=== PATIENT | female | born 1950 | race Native Hawaiian/Other Pacific Islander ===

== ENCOUNTER 2016-10-18 18:43 | Emergency (ER) | payer MEDICARE, OTHER ==
[~2016-10-18] VITALS: Ht 157.5 cm; Wt 68.0 kg
[~2016-10-18 18:43] MED LIST: ASPI325T PO; HYDR12.56 PO; LISI-363 PO; LORTA5 PO; METO50; NITR.4 SL; OMEP20TA PO; ONDA4TAB7 OR; PHEN12.5 PO; PROZ20CA11 PO; SIMV20 PO; TRAM50TA PO
[2016-10-18 18:54] VITALS: BP 184/84; PULSE 114; RESP 20; TEMP 97.7; O2SAT 97
[2016-10-18 21:25] VITALS: BP 188/102; PULSE 91; RESP 18; O2SAT 98
[2016-10-18] MEDS ORDERED: SODIUM CHLOR 0.9% 1000 ML INJ 1,000 ML IV SCH (21:25)
--- NOTE | 2016-10-18 21:28 | PD ---
HPI Chief Complaint: Abdominal Pain Time Seen by Provider: 21:21 Travel History International Travel<30 days: No Contact w/Intl Traveler<30days: No Traveled to known affect area: No History of Present Illness HPI 65-year-old female here for evaluation of abdominal pain, nausea, and vomiting. Patient reports that the symptoms of an ongoing on for last 3 days. Emesis consists of food, is nonbloody. She has not had a bowel movement in the last 3 days. Pain is epigastric. She is unable to qualify the pain. Pain radiates up into her chest and she is having mild shortness of breath. She is having intermittent fevers and chills. She is also complaining of some dysuria. History of 3 sections. No other abdominal surgeries. PFSH Past Medical History Arthritis: No Asthma: No Autoimmune Disease: No Blood Disorders: No Heart Rhythm Problems: No Cancer: Yes (UTERINE) Cardiac Catheterization: Yes Cardiovascular Problems: Yes High Cholesterol: Yes Chemotherapy: Yes (1998) Chest Pain: Yes Congestive Heart Failure: No COPD: No Cerebrovascular Accident: No Coronary Artery Disease: Yes Diabetes: No Diminished Hearing: No Endocrine: No Gastrointestinal Disorders: Yes (stomach ulcers; gastroparesis) GERD: Yes Glaucoma: No Genitourinary: Yes Headaches: Yes Hepatitis: No Hiatal Hernia: No Hypertension: Yes Immune Disorder: No Kidney Stones: No Musculoskeletal: Yes Neurologic: Yes Psychiatric: No Reproductive: No Respiratory: Yes Immunizations Current: No Migraines: No Myocardial Infarction: Yes Radiation Therapy: Yes (1998) Renal Failure: No Seizures: No Sickle Cell Disease: No Sleep Apnea: No Thyroid Disease: No Ulcer: Yes (stomach) PNEUMOCCOCAL Vaccine (Year): 2 Menopausal: Yes : 5 Para: 5 Past Surgical History Abdominal Surgery: No AICD: No Appendectomy: No Arteriovenous Shunt: No Cardiac Surgery: Yes (ANGIOPLASTY IN [place] IN 2005) Cholecystectomy: No Ear Surgery: No Endocrine Surgery: No Eye Surgery: No Gynecologic Surgery: Yes (CERVIX ECTOMY) Hysterectomy: Yes Insulin Pump: No Joint Replacement: No Oral Surgery: No Pacemaker: No Thoracic Surgery: No Other Surgery: Yes Social History Alcohol Use: No Tobacco Use: No Substance Use: No Allergies-Medications (Allergen,Severity, Reaction): Coded Allergies: No Known Allergies (Verified , 06/07/12) Reported Meds & Prescriptions Reported Meds & Active Scripts Active Tramadol Hcl (Tramadol HCl) 50 Mg Tab 50 Mg PO Q4-6HPRN Phenergan (Promethazine HCl) 12.5 Mg Tab 12.5 Mg PO Q6HPRN FOR NAUSEA Ondansetron Odt (Ondansetron HCl) 4 Mg Tab 4 Mg OR Q6HPRN [place] 5/325 (Hydrocodone-Acetaminophen) 325 Mg/5 Mg Tab 1 Tab PO Q4HPRN Prozac (Fluoxetine HCl) 20 Mg Cap 20 Mg PO DAILY Zocor (Simvastatin) 20 Mg Tab 20 Mg PO HS Hctz (Hydrochlorothiazide) 12.5 Mg Cap 12.5 Mg PO DAILY Reported Lisinopril 20 Mg Tab 20 Mg PO BID Aspirin 325 Mg Tab (Aspirin) 325 Mg Tab 325 Mg PO DAILY Lopressor 50 Mg Tab (Metoprolol Tartrate) 50 Mg Tab 50 Mg .XX BID Nitroglycerin 0.4 Mg Subl 0.4 Mg SL DAILYPRN Omeprazole 20 Mg Tab 20 Mg PO DAILY Review of Systems Except as stated in HPI: all other systems reviewed are Neg Physical Exam Narrative GENERAL: Well-developed, well-nourished, comfortable, no acute distress. SKIN: Focused skin assessment warm/dry. HEAD: Atraumatic. Normocephalic. EYES: Pupils equal and round. No scleral icterus. No injection or drainage. ENT: Mucous membranes pink and dry. NECK: Trachea midline. No JVD. CARDIOVASCULAR: Regular rate and rhythm. RESPIRATORY: No accessory muscle use. Clear to auscultation. Breath sounds equal bilaterally. GASTROINTESTINAL: Abdomen soft, nondistended. Moderate epigastric tenderness without peritoneal signs. Rest of abdomen is mildly tender. Normal bowel sounds. No hernias. MUSCULOSKELETAL: No obvious deformities. No clubbing. No cyanosis. No edema. NEUROLOGICAL: Awake and alert. No obvious cranial nerve deficits. Motor grossly within normal limits. Normal speech. PSYCHIATRIC: Appropriate mood and affect; insight and judgment normal. Data Data Last Documented VS Vital Signs Date Time Temp Pulse Resp B/P Pulse Ox O2 Delivery O2 Flow Rate FiO2 10/19/16 01:36 82 18 177/81 98 Room Air 10/18/16 18:54 97.7 Orders Complete Blood Count With Diff (10/18/16 21:25) Comprehensive Metabolic Panel (10/18/16 21:25) Lipase (10/18/16 21:25) Prothrombin Time / Inr (Pt) (10/18/16 21:25) Act Partial Throm Time (Ptt) (10/18/16 21:25) Urinalysis - C+S If Indicated (10/18/16:25) Ct Abd/Pel W Iv Contrast(Rout) (10/18/16 21:25) Iv Access Insert/Monitor (10/18/16 21:25) Ecg Monitoring (10/18/16:) Oximetry (10/18/16 21:) Morphine Inj (Morphine Inj) (10/18/16 21:30) Ondansetron Inj (Zofran Inj) (10/18/16 21:30) Sodium Chlor 0.9% 1000 Ml Inj (Ns 1000 M (10/18/16 21:) Sodium Chloride 0.9% Flush (Ns Flush) (10/18/16 21:30) Electrocardiogram (10/18/16 21:25) Ckmb (Isoenzyme) Profile (10/18/16:25) Troponin I (10/18/16:) Chest, Single Ap (10/18/16 21:25) Urine Culture (10/18/16 23:00) Ceftriaxone Inj (Rocephin Inj) (10/18/16 23:45) Iohexol 350 Inj (Omnipaque 350 Inj) (10/19/16 00:30) Labs Laboratory Tests Test 10/18/16 10/18/16 22:55 23:00 White Blood Count 8.4 TH/MM3 Red Blood Count 4.92 MIL/MM3 Hemoglobin 13.8 GM/DL Hematocrit 40.0 % Mean Corpuscular Volume 81.3 FL Mean Corpuscular Hemoglobin 28.1 PG Mean Corpuscular Hemoglobin 34.6 % Concent Red Cell Distribution Width 14.7 % Platelet Count 236 TH/MM3 Mean Platelet Volume 9.2 FL Neutrophils (%) (Auto) 75.2 % Lymphocytes (%) (Auto) 15.5 % Monocytes (%) (Auto) 8.7 % Eosinophils (%) (Auto) 0.3 % Basophils (%) (Auto) 0.3 % Neutrophils # (Auto) 6.3 TH/MM3 Lymphocytes # (Auto) 1.3 TH/MM3 Monocytes # (Auto) 0.7 TH/MM3 Eosinophils # (Auto) 0.0 TH/MM3 Basophils # (Auto) 0.0 TH/MM3 CBC Comment DIFF FINAL Differential Comment Prothrombin Time 11.5 SEC Prothromb Time International 1.0 RATIO Ratio Activated Partial 32.4 SEC Thromboplast Time Sodium Level 135 MEQ/L Potassium Level 3.3 MEQ/L Chloride Level 97 MEQ/L Carbon Dioxide Level 27.3 MEQ/L Anion Gap 11 MEQ/L Blood Urea Nitrogen 18 MG/DL Creatinine 1.00 MG/DL Estimat Glomerular Filtration 55 ML/MIN Rate Random Glucose 91 MG/DL Calcium Level 9.2 MG/DL Total Bilirubin 0.7 MG/DL Aspartate Amino Transf 16 U/L (AST/SGOT) Alanine Aminotransferase 20 U/L (ALT/SGPT) Alkaline Phosphatase 112 U/L Total Creatine Kinase 18 U/L Troponin I LESS THAN 0.02 NG/ML Total Protein 8.3 GM/DL Albumin 3.2 GM/DL Lipase 178 U/L Urine Color YELLOW Urine Turbidity CLOUDY Urine pH 5.5 Urine Specific [place] 1.020 Urine Protein 30 mg/dL Urine Glucose (UA) NEG mg/dL Urine Ketones 10 mg/dL Urine Occult Blood LARGE Urine Nitrite POS Urine Bilirubin NEG Urine Urobilinogen 2.0 MG/DL Urine Leukocyte Esterase LARGE Urine RBC 15 /hpf Urine WBC 73 /hpf Urine WBC Clumps FEW Urine Squamous Epithelial 11 /hpf Cells Urine Amorphous Sediment RARE Urine Bacteria MANY /hpf Urine Mucus FEW /lpf Microscopic Urinalysis Comment CULTURE INDICATED MDM Medical Decision Making Medical Screen Exam Complete: Yes Emergency Medical Condition: Yes Interpretation(s) EKG: Sinus, rate 89, normal axis, normal intervals, nonspecific ST and T-wave abnormality, no ST segment elevations. Differential Diagnosis Gastritis, peptic ulcer disease, hepatitis, hepatobiliary disease, mesenteric ischemia. Colitis, bowel obstruction, ACS Narrative Course Initial vital signs show heart rate 114, blood pressure 184/84, pulse ox 97% on room air, oral temp of 97.7F. Heart rate improved to 82 after a liter of normal saline and pain control. CBC is unremarkable. CMP is remarkable for potassium 3.3, otherwise unremarkable. Lipase is 178. Cardiac enzymes are negative. UA is suggestive of UTI. The patient was started on Rocephin. CT abdomen pelvis: No evidence of acute abdominal or pelvic process. No masses are identified. Patient was made aware of all findings. She is resting comfortably. She will be given oral potassium. She was given a dose of Rocephin for her UTI. Although she is feeling better, she is still having some abdominal discomfort. She'll be given another dose of pain medication here. She is stable for discharge home with outpatient follow-up with her primary care physician this week. She will be discharged home with a prescription for Macrobid. She was informed on when to return to the emergency department. She verbalizes understanding and agreement with plan. Diagnosis Primary Impression: UTI (urinary tract infection) Qualified Code: N30.01 - Acute cystitis with hematuria Referrals: Primary Care Physician 3 days Additional Instructions: Follow-up with your primary care physician this week. Take antibiotic as prescribed. Return to the emergency department for worsening symptoms or any other concerns. Scripts Tramadol 50 Mg Tab50 Mg PO Q6H PRN (PAIN) #12 TAB Ref 0 Prov:Rafael Loera MD 10/19/16 Phenazopyridine (Pyridium)100 Mg [id number] Mg PO Q8H PRN (DYSURIA) 5 Days Ref 0 Prov:Rafael Loear MD 10/19/16 Nitrofurantoin Monohydrate Macrocrystals (Macrobid)100 Mg [id number] Mg PO BID 7 Days Ref 0 Prov:Rafael Loera MD 10/19/16 Disposition: 01 DISCHARGE HOME Condition: Stable Rafael Loera MD Oct 18, 2016 21:28
[2016-10-18] MEDS ORDERED: ONDANSETRON HCL 4 MG/2 ML VIAL IVP ONE (21:30)
[2016-10-18] MEDS ORDERED: SODIUM CHLORIDE 0.9% FLUSH 10 ML FLUSH IV FLUSH PRN (21:30)
[2016-10-18] MEDS ORDERED: MORPHINE SULFATE 4 MG/ML INJ IV PUSH ONE (21:30)
--- NOTE | 2016-10-18 22:36 | RADRPT ---
EXAM DATE/TIME: 10/18/2016 21:59 [facility] COMPARISON: No previous studies available for comparison. INDICATIONS : Chest pain. MEDICAL HISTORY : Hypertension. Myocardial infarction. Uterine and breast cancer. SURGICAL HISTORY : Coronary stent. Cardiac cath. ENCOUNTER: Initial ACUITY: 1 month PAIN SCORE: 6/10 LOCATION: Bilateral chest FINDINGS: A single view of the chest demonstrates the lungs to be symmetrically aerated without evidence of mas s, infiltrate or effusion. The cardiomediastinal contours are unremarkable. Osseous structures are intact. CONCLUSION: No acute disease. Jonah Stoddard MD on October 18, 2016 at 22:33 Board Certified Radiologist. This report was verified electronically.
[2016-10-18 22:55] VITALS: BP 187/100; PULSE 91; RESP 18; O2SAT 97
[2016-10-18 23:18] LABS: AUTOMATED NEUTROPHIL # 6.3 TH/MM3 (1.8-7.7); BASOPHIL % 0.3 % (0.0-2.0); EOSINOPHIL % 0.3 % (0.0-4.0); HEMO FLAGS DIFF FINAL; LYMPH % 15.5 % (9.0-44.0); LYMPHOCYTE # 1.3 TH/MM3 (1.0-4.8); MEAN CELL VOLUME 81.3 FL (80.0-100.0); MEAN CORPUSCULAR HEMOGLOBIN 28.1 PG (27.0-34.0); MEAN CORPUSCULAR HGB CONC 34.6 % (32.0-36.0); MONO % 8.7 % (0.0-8.0); NEUT % 75.2 % (16.0-70.0); PLATELET COUNT 236 TH/MM3 (150-450); RED BLOOD COUNT 4.92 MIL/MM3 (4.00-5.30); RED CELL DISTRIBUTION WIDTH 14.7 % (11.6-17.2); WHITE BLOOD COUNT 8.4 TH/MM3 (4.0-11.0)
[2016-10-18 23:29] LABS: BACTERIA, URINE MANY /hpf; BLOOD, URINE LARGE (NEG); COMMENT (UR) CULTURE INDICATED; CULTURE IF INDICATED CULTURE INDICATED; GLUCOSE,URINE NEG (NEG); KETONE, URINE 10 mg/dL (NEG); MUCUS URINE FEW /lpf (OCC); PH, URINE 5.5 (5.0-8.5); SQUAMOUS EPITHELIAL CELL URINE 11 /hpf (0-5); URINE COLOR YELLOW (YELLW/STRAW)
[2016-10-18 23:30] LABS: NITRITE,URINE POS (NEG)
[2016-10-18 23:33] LABS: APTT (PATIENT) 32.4 SEC (24.3-30.1); PROTHROMBIN TIME - PATIENT 11.5 SEC (9.8-11.6)
[2016-10-18] MEDS ORDERED: cefTRIAXone INJ 1,000 MG in SODIUM CHLORIDE 0.9% INJ 100 ML IV ONE (23:45)
[2016-10-18 23:48] LABS: ANION GAP 11 MEQ/L (5-15); AST (GOT) 16 U/L (15-37); BICARBONATE 27.3 MEQ/L (21.0-32.0); BLOOD UREA NITROGEN 18 MG/DL (7-18); CHLORIDE 97 MEQ/L (98-107); GLOMERULAR FILTRATION RATE 55 ML/MIN (>89); POTASSIUM 3.3 MEQ/L (3.5-5.1); SODIUM (NA) 135 MEQ/L (136-145)
[2016-10-18 23:53] LABS: ALKALINE PHOSPHATASE 112 U/L (45-117); ALT (GPT) 20 U/L (10-53); TOTAL BILIRUBIN ADULT 0.7 MG/DL (0.2-1.0)
[2016-10-18 23:55] LABS: CREATINE KINASE 18 U/L (26-192)
[2016-10-19 00:10] VITALS: BP 164/87; PULSE 82; RESP 18; O2SAT 95
[2016-10-19] MEDS ORDERED: IOHEXOL 350 MG/ML 10 ML VIAL (for RAD DIAG) IV ONE (00:30)
--- NOTE | 2016-10-19 01:19 | RADRPT ---
EXAM DATE/TIME: 10/19/2016 00:23 [facility] COMPARISON: No previous studies available for comparison. INDICATIONS : Abdominal pain, nausea, and vomiting X 3 days. IV CONTRAST: 96 cc Omnipaque 350 (iohexol) IV ORAL CONTRAST: No oral contrast ingested. RADIATION DOSE: 5.37 CTDIvol (mGy) MEDICAL HISTORY : Gastroparesis. utering cancer SURGICAL HISTORY : section. cervix removed ENCOUNTER: Initial ACUITY: 3 days PAIN SCALE: 7/10 LOCATION: abdomen TECHNIQUE: Volumetric scanning of the abdomen and pelvis was performed. Using automated exposure control and ad justment of the mA and/or kV according to patient size, radiation dose was kept as low as reasonably achievable to obtain optimal diagnostic quality images. FINDINGS: There is subsegmental atelectasis in the both bases. The liver and spleen are free of focal defects. The gallbladder and pancreas demonstrate no abnormality. The adrenal glands are normal. The kidneys demonstrate no evidence of solid renal mass or hydronephrosis. No free fluid or abdominal masses are identified. No para-aortic adenopathy is seen. Examination of the right lower quadrant demonstrates n o abnormality. The appendix is identified and appears normal. Examination of the pelvis demonstrates no evidence of free fluid or pelvic mass. No abnormally enlarg ed inguinal or retroperitoneal lymph nodes are present. The bladder is unremarkable. There is evidenc e of previous node dissection. CONCLUSION: 1. No evidence of acute abdominal or pelvic process. No masses are identified. Lawrence Tipton MD on October 19, 2016 at 1:15 Board Certified Radiologist. This report was verified electronically.
[2016-10-19 01:36] VITALS: BP 177/81; PULSE 82; RESP 18; O2SAT 98
[2016-10-19] MEDS ORDERED: MORPHINE SULFATE 4 MG/ML INJ IV PUSH ONE (01:45)
[2016-10-19] MEDS ORDERED: PHEN0.4T PO (01:49)
[2016-10-19] MEDS ORDERED: TRAM50TA PO ×2 (01:49→01:53)
[2016-10-19] MEDS ORDERED: MACR100C2 PO (01:49)
[2016-10-19] MEDS ORDERED: SERT-132 PO (01:53)
[2016-10-19] MEDS ORDERED: MELO-1 PO (01:53)
[2016-10-19] MEDS ORDERED: METO50TA PO (01:53)
[2016-10-19] MEDS ORDERED: CLON0.1T PO (01:53)
[2016-10-19] MEDS ORDERED: PHENAZOPYRIDINE HCL 100 MG TAB PO ONE (02:00)
--- NOTE | 2016-10-19 13:49 | EKG ---
Date Performed: 10/18/2016 Time Performed: 23:43:06 PTAGE: 65 years EKG: Sinus rhythm NONSPECIFIC ST & T-WAVE ABNORMALITY Compared to previous tracing, there are no longer criteria for p ossible septal infarct. ST-T changes are new. BORDERLINE ECG PREVIOUS TRACING : 06/25/2011 22.12 DOCTOR: Ramsey Cortez Interpretating Date/Time 10/19/2016 13:47:29
== END 2016-10-19 02:42 | disposition home or self-care (01) ==
LOC: NEPC 18:43
DX: N39.0 Urinary tract infection, site not specified (principal); R11.2 Nausea with vomiting, unspecified; R30.0 Dysuria; I10 Essential (primary) hypertension; R94.31 Abnormal electrocardiogram [ECG] [EKG]; B96.20 Unspecified Escherichia coli [E. coli] as the cause of diseases classified elsewhere
CPT/HCPCS: 71010; 74177; 80053; 81001; 82550; 83690; 84484; 85025; 85610; 85730; 87077; 87086; 87186; 93005; 96361; 96365; 96375; 96376; 99285; J0696; J2270; J2405; J7030; Q9967

== ENCOUNTER 2016-11-04 08:30 | Emergency (ER) | payer MEDICARE, OTHER ==
[~2016-11-04] VITALS: Ht 162.6 cm; Wt 72.5 kg
[~2016-11-04 08:30] MED LIST changes: -ASPI325T PO; +CLON0.1T PO; -HYDR12.56 PO; -LISI-363 PO; -LORTA5 PO; +MELO-1 PO; -METO50; +METO50TA PO; -NITR.4 SL; -OMEP20TA PO; -ONDA4TAB7 OR; -PHEN12.5 PO; -PROZ20CA11 PO; +SERT-132 PO; -SIMV20 PO
[2016-11-04 08:32] VITALS: BP 208/103; PULSE 70; RESP 20; TEMP 97.5; O2SAT 99
[2016-11-04] MEDS ORDERED: SODIUM CHLOR 0.9% 1000 ML INJ 1,000 ML IV SCH (09:06)
[2016-11-04] MEDS ORDERED: SODIUM CHLORIDE 0.9% FLUSH 10 ML FLUSH IV FLUSH PRN (09:15)
[2016-11-04] MEDS ORDERED: ONDANSETRON HCL 4 MG/2 ML VIAL IVP ONE (09:15)
[2016-11-04] MEDS ORDERED: ALUMINUM/MAGNESIUM/SIMETH 30 ML CUP PO ONE (09:15)
[2016-11-04] MEDS ORDERED: LIDOCAINE VISCOUS 2% SOLN 15 ML UDC PO ONE (09:15)
--- NOTE | 2016-11-04 09:25 | PD ---
HPI Chief Complaint: Abdominal Pain Time Seen by Provider: 08:46 Travel History International Travel<30 days: No Contact w/Intl Traveler<30days: No Traveled to known affect area: No History of Present Illness HPI 59-year-old female complains of epigastric abdominal pain for at least 2 weeks. She was seen here 2 weeks ago and diagnosed with a urinary tract infection after she arrived with essentially the same complaint. Patient is unclear with regard to answering the specific question if she went to a pharmacy and obtained her prescription for antibiotics following discharge from the prior admission. In any case she reports nausea and vomiting for the past 2 weeks. Any oral intake causes worsening of the nausea and vomiting. Location gastrointestinal. Timing intermittent. PFSH Past Medical History Arthritis: No Asthma: No Autoimmune Disease: No Blood Disorders: No Heart Rhythm Problems: No Cancer: Yes (uterine, left breast ca) Cardiac Catheterization: Yes Cardiovascular Problems: Yes High Cholesterol: Yes Chemotherapy: Yes (1998) Chest Pain: Yes Congestive Heart Failure: No COPD: No Cerebrovascular Accident: No Coronary Artery Disease: Yes Diabetes: No Diminished Hearing: No Endocrine: No Gastrointestinal Disorders: Yes (stomach ulcers; gastroparesis) GERD: Yes Glaucoma: No Genitourinary: Yes Headaches: Yes Hepatitis: No Hiatal Hernia: No Hypertension: Yes Immune Disorder: No Kidney Stones: No Musculoskeletal: Yes Neurologic: Yes Psychiatric: No Reproductive: No Respiratory: Yes Immunizations Current: No Migraines: No Myocardial Infarction: Yes Radiation Therapy: Yes (1998) Renal Failure: No Seizures: No Sickle Cell Disease: No Sleep Apnea: No Thyroid Disease: No Ulcer: Yes (stomach) PNEUMOCCOCAL Vaccine (Year): 2 Menopausal: Yes : 5 Para: 5 Past Surgical History Abdominal Surgery: No AICD: No Appendectomy: No Arteriovenous Shunt: No Cardiac Surgery: Yes (ANGIOPLASTY IN [place] IN 2005) Cholecystectomy: No Coronary Stent: Yes Ear Surgery: No Endocrine Surgery: No Eye Surgery: No Gynecologic Surgery: Yes (CERVIX ECTOMY) Hysterectomy: Yes Insulin Pump: No Joint Replacement: No Oral Surgery: No Pacemaker: No Thoracic Surgery: No Other Surgery: Yes Family History Family Myocardial Infarction: Yes (BROTHER, FATHER) Social History Alcohol Use: No Tobacco Use: No Substance Use: No Allergies-Medications (Allergen,Severity, Reaction): Coded Allergies: No Known Allergies (Verified , 11/04/16) Reported Meds & Prescriptions Reported Meds & Active Scripts Active Carafate (Sucralfate) 1 Gm Tab 1 Gm PO TID On empty stomach Pepcid (Famotidine) 20 Mg Tab 10 Mg PO BID PRN Phenergan (Promethazine HCl) 25 Mg Tab 25 Mg PO Q6H PRN Bactrim DS (Sulfamethoxazole-Trimethoprim) 800-160 Mg Tab 1 Tab PO BID Reported Clonidine (Clonidine HCl) 0.1 Mg Tab 0.1 Mg PO BID Sertraline (Sertraline HCl) 50 Mg Tab 50 Mg PO DAILY Tramadol (Tramadol HCl) 50 Mg Tab 50 Mg PO Q6H PRN Meloxicam 15 Mg Tab 15 Mg PO DAILY Metoprolol Tartrate 50 Mg Tab 50 Mg PO BID Review of Systems Except as stated in HPI: all other systems reviewed are Neg General / Constitutional: No: Fever Gastrointestinal: Positive: Other (perirectal asbscess) Physical Exam Narrative GENERAL: 66-year-old female pleasant well-nourished well-developed SKIN: Focused skin assessment warm/dry. HEAD: Atraumatic. Normocephalic. EYES: Pupils equal and round. No scleral icterus. No injection or drainage. ENT: No nasal bleeding or discharge. Mucous membranes pink and moist. NECK: Trachea midline. No JVD. CARDIOVASCULAR: Regular rate and rhythm. No murmur appreciated. RESPIRATORY: No accessory muscle use. Clear to auscultation. Breath sounds equal bilaterally. GASTROINTESTINAL: Soft. Minimal epigastric tenderness. MUSCULOSKELETAL: No obvious deformities. No clubbing. No cyanosis. No edema. NEUROLOGICAL: Awake and alert. No obvious cranial nerve deficits. Motor grossly within normal limits. Normal speech. PSYCHIATRIC: Appropriate mood and affect; insight and judgment normal. Data Data Last Documented VS Vital Signs Date Time Temp Pulse Resp B/P Pulse Ox O2 Delivery O2 Flow Rate FiO2 11/04/16 08:32 97.5 70 20 208/103 99 Room Air Hypertension noted and we will recheck Orders Complete Blood Count With Diff (11/04/16 09:06) Comprehensive Metabolic Panel (11/04/16 09:06) Lipase (11/04/16 09:06) Urinalysis - C+S If Indicated (11/04/16 09:06) Iv Access Insert/Monitor (11/04/16 09:06) Ecg Monitoring (11/04/16 09:06) Oximetry (11/04/16 09:06) Ondansetron Inj (Zofran Inj) (11/04/16 09:15) Sodium Chlor 0.9% 1000 Ml Inj (Ns 1000 M (11/04/16 09:06) Sodium Chloride 0.9% Flush (Ns Flush) (11/04/16 09:15) Al-Mag Hy-Si 40-40-4 Mg/Ml Liq (Mag-Al P (11/04/16 09:15) Lidocaine 2% Viscous (Xylocaine 2% Visco (11/04/16 09:15) Urine Culture (11/04/16 09:18) Ceftriaxone Inj (Rocephin Inj) (11/04/16 10:00) Sulfamet-Trimeth Ds 800-160 Mg (Bactrim (11/04/16 10:00) Labs Laboratory Tests Test 11/04/16 11/04/16 09:10 09:18 Sodium Level 138 MEQ/L Potassium Level 3.8 MEQ/L Chloride Level 104 MEQ/L Carbon Dioxide Level 24.2 MEQ/L Anion Gap 10 MEQ/L Blood Urea Nitrogen 20 MG/DL Creatinine 0.97 MG/DL Estimat Glomerular Filtration 57 ML/MIN Rate Random Glucose 97 MG/DL Calcium Level 8.9 MG/DL Total Bilirubin 0.4 MG/DL Aspartate Amino Transf 16 U/L (AST/SGOT) Alanine Aminotransferase 23 U/L (ALT/SGPT) Alkaline Phosphatase 83 U/L Total Protein 7.4 GM/DL Albumin 3.1 GM/DL Lipase 286 U/L White Blood Count 7.3 TH/MM3 Red Blood Count 4.73 MIL/MM3 Hemoglobin 12.9 GM/DL Hematocrit 38.9 % Mean Corpuscular Volume 82.1 FL Mean Corpuscular Hemoglobin 27.4 PG Mean Corpuscular Hemoglobin 33.3 % Concent Red Cell Distribution Width 15.1 % Platelet Count 233 TH/MM3 Mean Platelet Volume 9.2 FL Neutrophils (%) (Auto) 67.5 % Lymphocytes (%) (Auto) 25.2 % Monocytes (%) (Auto) 6.0 % Eosinophils (%) (Auto) 0.9 % Basophils (%) (Auto) 0.4 % Neutrophils # (Auto) 4.9 TH/MM3 Lymphocytes # (Auto) 1.8 TH/MM3 Monocytes # (Auto) 0.4 TH/MM3 Eosinophils # (Auto) 0.1 TH/MM3 Basophils # (Auto) 0.0 TH/MM3 CBC Comment DIFF FINAL Differential Comment Urine Color YELLOW Urine Turbidity HAZY Urine pH 6.5 Urine Specific [place] 1.011 Urine Protein NEG mg/dL Urine Glucose (UA) NEG mg/dL Urine Ketones NEG mg/dL Urine Occult Blood SMALL Urine Nitrite POS Urine Bilirubin NEG Urine Urobilinogen LESS THAN 2.0 MG/DL Urine Leukocyte Esterase MOD Urine RBC 6 /hpf Urine WBC 6 /hpf Urine WBC Clumps RARE Urine Squamous Epithelial 1 /hpf Cells Urine Transitional Epithelial <1 /hpf Cells Urine Bacteria MANY /hpf Urine Mucus FEW /lpf Microscopic Urinalysis Comment CULTURE INDICATED MDM Medical Decision Making Medical Screen Exam Complete: Yes Emergency Medical Condition: Yes Medical Record Reviewed: Yes Differential Diagnosis Constipation, Gastritis, Acute Cholecystitis, Biliary Colic, Pancreatitis, MARTINEZ , Hepatitis, Bowel Obstruction, Cystitis, Mesenteric Ischemia, AAA, Appendicitis , Renal Stone/Hydronephrosis, GERD, perforated viscous Narrative Course CBC & BMP Diagram 11/04/16 09:10 LFTs normal Lipase normal UA UTI present Very specific instructions to go to pharmacy and obtain script were discussed and pt verbalized understanding. The patient is resting comfortably and feels better, is alert and in no distress. The patients results and examination findings were discussed. The repeat examination is unremarkable and benign. The history, exam, diagnostic testing, and current condition do not suggest any significant pathology to warrant further testing, continued ED treatment, admission, or surgical evaluation at this point. The vital signs have been stable. The patient does not have uncontrollable pain, intractable vomiting, or other significant symptoms. The patient's condition is stable and appropriate for discharge. The patient will pursue further outpatient evaluation with a primary care physician or other designated or consulting physician as indicated in the discharge instructions. The patient expressed understanding and was agreeable with this plan. Diagnosis Primary Impression: UTI (urinary tract infection) Qualified Code: N30.01 - Acute cystitis with hematuria Referrals: Primary Care Physician 2 days Additional Instructions: You have a choice when it comes to health care, and we are glad that you chose [facility]. Hopefully, we have met your expectations on today's visit. You are welcome to return to [facility] at any time, as we are committed to meeting the health care needs of our community. Med/Other Pt SpecificInfo: Prescription(s) given Scripts Famotidine (Pepcid)20 Mg Tab10 Mg PO BID PRN (REFLUX) #10 TAB Ref 0 Prov:Gwyn Davis MD 11/04/16 Promethazine (Phenergan)25 Mg Tab25 Mg PO Q6H PRN (Nausea/Vomiting) #10 TAB Ref 0 Prov:Gwyn Davis MD 11/04/16 Sulfamethoxazole-Trimethoprim (Bactrim DS)800-160 Mg Tab1 Tab PO BID #14 TAB Ref 0 Prov:Gwyn Davis MD 11/04/16 Disposition: 01 DISCHARGE HOME Condition: Stable Gwyn Davis MD November 04, 2016 09:25
[2016-11-04 09:31] LABS: AUTOMATED NEUTROPHIL # 4.9 TH/MM3 (1.8-7.7); BASOPHIL % 0.4 % (0.0-2.0); EOSINOPHIL # 0.1 TH/MM3 (0-0.4); EOSINOPHIL % 0.9 % (0.0-4.0); HEMATOCRIT 38.9 % (35.0-46.0); HEMO FLAGS DIFF FINAL; LYMPH % 25.2 % (9.0-44.0); LYMPHOCYTE # 1.8 TH/MM3 (1.0-4.8); MEAN CELL VOLUME 82.1 FL (80.0-100.0); MEAN CORPUSCULAR HEMOGLOBIN 27.4 PG (27.0-34.0); MEAN CORPUSCULAR HGB CONC 33.3 % (32.0-36.0); NEUT % 67.5 % (16.0-70.0); PLATELET COUNT 233 TH/MM3 (150-450); RED BLOOD COUNT 4.73 MIL/MM3 (4.00-5.30); RED CELL DISTRIBUTION WIDTH 15.1 % (11.6-17.2); WHITE BLOOD COUNT 7.3 TH/MM3 (4.0-11.0)
[2016-11-04 09:43] LABS: BACTERIA, URINE MANY /hpf; BLOOD, URINE SMALL (NEG); COMMENT (UR) CULTURE INDICATED; CULTURE IF INDICATED CULTURE INDICATED; GLUCOSE,URINE NEG (NEG); KETONE, URINE NEG (NEG); MUCUS URINE FEW /lpf (OCC); PH, URINE 6.5 (5.0-8.5); SQUAMOUS EPITHELIAL CELL URINE 1 /hpf (0-5); TRANSITIONAL EPI CELLS, URINE <1 /hpf; URINE COLOR YELLOW (YELLW/STRAW)
[2016-11-04 09:44] LABS: NITRITE,URINE POS (NEG)
[2016-11-04 09:47] LABS: ANION GAP 10 MEQ/L (5-15); AST (GOT) 16 U/L (15-37); BICARBONATE 24.2 MEQ/L (21.0-32.0); BLOOD UREA NITROGEN 20 MG/DL (7-18); CHLORIDE 104 MEQ/L (98-107); GLOMERULAR FILTRATION RATE 57 ML/MIN (>89); POTASSIUM 3.8 MEQ/L (3.5-5.1); SODIUM (NA) 138 MEQ/L (136-145)
[2016-11-04] MEDS ORDERED: BACT800T5 PO (09:48)
[2016-11-04 09:50] LABS: ALKALINE PHOSPHATASE 83 U/L (45-117); ALT (GPT) 23 U/L (10-53); TOTAL BILIRUBIN ADULT 0.4 MG/DL (0.2-1.0)
[2016-11-04] MEDS ORDERED: SULFAMETHOXAZOLE-TRIMETHOPRIM DS 800-160 MG TAB PO ONE (10:00)
[2016-11-04] MEDS ORDERED: cefTRIAXone INJ 1,000 MG in SODIUM CHLORIDE 0.9% INJ 100 ML IV ONE (10:00)
[2016-11-04] MEDS ORDERED: PROM25TA5 PO (10:08)
[2016-11-04] MEDS ORDERED: FAMO1TAB37 PO (10:08)
== END 2016-11-04 12:16 | disposition home or self-care (01) ==
LOC: NEPE 08:30
DX: N30.01 Acute cystitis with hematuria (principal); B96.20 Unspecified Escherichia coli [E. coli] as the cause of diseases classified elsewhere; R11.2 Nausea with vomiting, unspecified; R10.13 Epigastric pain; I10 Essential (primary) hypertension; E78.00 Pure hypercholesterolemia, unspecified; I25.2 Old myocardial infarction; Z85.42 Personal history of malignant neoplasm of other parts of uterus; Z85.3 Personal history of malignant neoplasm of breast; Z86.79 Personal history of other diseases of the circulatory system; Z87.19 Personal history of other diseases of the digestive system; Z87.448 Personal history of other diseases of urinary system; Z87.39 Personal history of other diseases of the musculoskeletal system and connective tissue; Z86.69 Personal history of other diseases of the nervous system and sense organs
CPT/HCPCS: 80053; 81001; 83690; 85025; 87077; 87086; 87186; 96361; 96374; 96375; 99284; J0696; J2405; J7030

== ENCOUNTER 2016-11-06 03:48 | Emergency (ER) | payer MEDICARE, OTHER ==
[~2016-11-06] VITALS: Ht 167.6 cm; Wt 65.0 kg
[~2016-11-06 03:48] MED LIST changes: +BACT800T5 PO; +FAMO1TAB37 PO; +PROM25TA5 PO
[2016-11-06] MEDS ORDERED: SODIUM CHLOR 0.9% 1000 ML INJ 1,000 ML IV SCH (03:54)
[2016-11-06] MEDS ORDERED: SODIUM CHLORIDE 0.9% FLUSH 10 ML FLUSH IV FLUSH PRN (04:00)
[2016-11-06] MEDS ORDERED: LIDOCAINE VISCOUS 2% SOLN 15 ML UDC PO ONE (04:00)
[2016-11-06] MEDS ORDERED: ONDANSETRON HCL 4 MG/2 ML VIAL IVP ONE (04:00)
[2016-11-06] MEDS ORDERED: ALUMINUM/MAGNESIUM/SIMETH 30 ML CUP PO ONE (04:00)
[2016-11-06] MEDS ORDERED: MORPHINE SULFATE 4 MG/ML INJ IV PUSH ONE (04:00)
[2016-11-06 04:07] VITALS: BP 221/100; PULSE 59; RESP 13; TEMP 98; O2SAT 99
[2016-11-06 04:09] VITALS: RESP 13; O2SAT 99
--- NOTE | 2016-11-06 04:28 | PD ---
HPI Chief Complaint: Abdominal Pain Time Seen by Provider: 03:52 Travel History International Travel<30 days: No Contact w/Intl Traveler<30days: No Traveled to known affect area: No History of Present Illness HPI 66-year-old female here for evaluation of epigastric abdominal pain, nausea, and vomiting. Pain described as burning, has been ongoing since around 8:00 PM. The patient reports history of gastric ulcers, and is requesting that I do a surgery to help her with these ulcers. She tried taking Zantac without relief of symptoms. Pain radiates up into her chest. I evaluated the patient 2 weeks ago for the same presentation, and workup was essentially unremarkable. CT abdomen pelvis at that time showed no acute intra-abdominal pathology. She was diagnosed with a UTI. She again presented to the emergency department 2 days ago for the same presentation, and had reassuring labs, once again diagnosed with a UTI. PFSH Past Medical History Arthritis: No Asthma: No Autoimmune Disease: No Blood Disorders: No Heart Rhythm Problems: No Cancer: Yes (uterine, left breast ca) Cardiac Catheterization: Yes Cardiovascular Problems: Yes High Cholesterol: Yes Chemotherapy: Yes (1998) Chest Pain: Yes Congestive Heart Failure: No COPD: No Cerebrovascular Accident: No Coronary Artery Disease: Yes Diabetes: No Diminished Hearing: No Endocrine: No Gastrointestinal Disorders: Yes (stomach ulcers; gastroparesis) GERD: Yes Glaucoma: No Genitourinary: Yes Headaches: Yes Hepatitis: No Hiatal Hernia: No Hypertension: Yes Immune Disorder: No Kidney Stones: No Musculoskeletal: Yes Neurologic: Yes Psychiatric: No Reproductive: No Respiratory: Yes Immunizations Current: No Migraines: No Myocardial Infarction: Yes Radiation Therapy: Yes (1998) Renal Failure: No Seizures: No Sickle Cell Disease: No Sleep Apnea: No Thyroid Disease: No Ulcer: Yes (stomach) PNEUMOCCOCAL Vaccine (Year): 2 ?: Not Menopausal: Yes : 5 Para: 5 Past Surgical History Abdominal Surgery: No AICD: No Appendectomy: No Arteriovenous Shunt: No Cardiac Surgery: Yes (ANGIOPLASTY IN [place] IN 2005) Cholecystectomy: No Coronary Stent: Yes Ear Surgery: No Endocrine Surgery: No Eye Surgery: No Gynecologic Surgery: Yes (CERVIX ECTOMY) Hysterectomy: Yes Insulin Pump: No Joint Replacement: No Oral Surgery: No Pacemaker: No Thoracic Surgery: No Other Surgery: Yes Social History Alcohol Use: No Tobacco Use: No Substance Use: No Allergies-Medications (Allergen,Severity, Reaction): Coded Allergies: No Known Allergies (Verified , 11/04/16) Reported Meds & Prescriptions Reported Meds & Active Scripts Active Pepcid (Famotidine) 20 Mg Tab 10 Mg PO BID PRN Phenergan (Promethazine HCl) 25 Mg Tab 25 Mg PO Q6H PRN Bactrim DS (Sulfamethoxazole-Trimethoprim) 800-160 Mg Tab 1 Tab PO BID Reported Clonidine (Clonidine HCl) 0.1 Mg Tab 0.1 Mg PO BID Sertraline (Sertraline HCl) 50 Mg Tab 50 Mg PO DAILY Tramadol (Tramadol HCl) 50 Mg Tab 50 Mg PO Q6H PRN Meloxicam 15 Mg Tab 15 Mg PO DAILY Metoprolol Tartrate 50 Mg Tab 50 Mg PO BID Review of Systems Except as stated in HPI: all other systems reviewed are Neg Physical Exam Narrative GENERAL: Well-developed, well-nourished, mild distress secondary to abdominal pain. Tearful. SKIN: Focused skin assessment warm/dry. HEAD: Atraumatic. Normocephalic. EYES: Pupils equal and round. No scleral icterus. No injection or drainage. ENT: Mucous membranes pink and moist. NECK: Trachea midline. No JVD. CARDIOVASCULAR: Regular rate and rhythm. Distal pulses brisk and equal bilaterally. RESPIRATORY: No accessory muscle use. Clear to auscultation. Breath sounds equal bilaterally. GASTROINTESTINAL: Abdomen soft, nondistended. Moderate epigastric tenderness without peritoneal signs. Rest of abdomen is soft and nontender. Normal bowel sounds. No hernias. MUSCULOSKELETAL: No obvious deformities. No clubbing. No cyanosis. No edema. NEUROLOGICAL: Awake and alert. No obvious cranial nerve deficits. Motor grossly within normal limits. Normal speech. Data Data Last Documented VS Vital Signs Date Time Temp Pulse Resp B/P Pulse Ox O2 Delivery O2 Flow Rate FiO2 11/06/16 04:52 55 14 170/77 97 Room Air 11/06/16 04:07 98.0 Orders Complete Blood Count With Diff (11/06/16 03:54) Comprehensive Metabolic Panel (11/06/16 03:54) Lipase (11/06/16 03:54) Prothrombin Time / Inr (Pt) (11/06/16 03:54) Act Partial Throm Time (Ptt) (11/06/16 03:54) Iv Access Insert/Monitor (11/06/16 03:54) Ecg Monitoring (11/06/16 03:54) Oximetry (11/06/16 03:54) Morphine Inj (Morphine Inj) (11/06/16 04:00) Ondansetron Inj (Zofran Inj) (11/06/16 04:00) Sodium Chlor 0.9% 1000 Ml Inj (Ns 1000 M (11/06/16 03:54) Sodium Chloride 0.9% Flush (Ns Flush) (11/06/16 04:00) Electrocardiogram (11/06/16 03:54) Al-Mag Hy-Si 40-40-4 Mg/Ml Liq (Mag-Al P (11/06/16 04:00) Lidocaine 2% Viscous (Xylocaine 2% Visco (11/06/16 04:00) Ckmb (Isoenzyme) Profile (11/06/16 03:54) Troponin I (11/06/16 03:54) Urinalysis - C+S If Indicated (11/06/16 03:55) Ceftriaxone Inj (Rocephin Inj) (11/06/16 05:00) Sucralfate (Carafate) (11/06/16 05:45) Labs Laboratory Tests Test 11/06/16 11/06/16 11/06/16 04:00 04:25 04:50 Sodium Level 137 MEQ/L Potassium Level 4.3 MEQ/L Chloride Level 103 MEQ/L Carbon Dioxide Level 26.2 MEQ/L Anion Gap 8 MEQ/L Blood Urea Nitrogen 18 MG/DL Creatinine 0.95 MG/DL Estimat Glomerular Filtration 59 ML/MIN Rate Random Glucose 91 MG/DL Calcium Level 8.9 MG/DL Total Bilirubin 0.4 MG/DL Aspartate Amino Transf 26 U/L (AST/SGOT) Alanine Aminotransferase 26 U/L (ALT/SGPT) Alkaline Phosphatase 86 U/L Total Creatine Kinase 67 U/L Troponin I LESS THAN 0.02 NG/ML Total Protein 7.2 GM/DL Albumin 3.0 GM/DL Lipase 272 U/L Urine Color YELLOW Urine Turbidity HAZY Urine pH 6.5 Urine Specific [place] 1.017 Urine Protein NEG mg/dL Urine Glucose (UA) NEG mg/dL Urine Ketones NEG mg/dL Urine Occult Blood SMALL Urine Nitrite NEG Urine Bilirubin NEG Urine Urobilinogen LESS THAN 2.0 MG/DL Urine Leukocyte Esterase NEG Urine RBC 9 /hpf Urine WBC 1 /hpf Urine Squamous Epithelial 2 /hpf Cells Urine Hyaline Casts 2 /lpf Urine Mucus FEW /lpf Microscopic Urinalysis Comment CULT NOT INDICATED White Blood Count 7.4 TH/MM3 Red Blood Count 4.43 MIL/MM3 Hemoglobin 12.3 GM/DL Hematocrit 36.1 % Mean Corpuscular Volume 81.5 FL Mean Corpuscular Hemoglobin 27.8 PG Mean Corpuscular Hemoglobin 34.1 % Concent Red Cell Distribution Width 15.1 % Platelet Count 220 TH/MM3 Mean Platelet Volume 9.0 FL Neutrophils (%) (Auto) 61.7 % Lymphocytes (%) (Auto) 29.3 % Monocytes (%) (Auto) 7.1 % Eosinophils (%) (Auto) 1.3 % Basophils (%) (Auto) 0.6 % Neutrophils # (Auto) 4.6 TH/MM3 Lymphocytes # (Auto) 2.2 TH/MM3 Monocytes # (Auto) 0.5 TH/MM3 Eosinophils # (Auto) 0.1 TH/MM3 Basophils # (Auto) 0.0 TH/MM3 CBC Comment DIFF FINAL Differential Comment Prothrombin Time 10.7 SEC Prothromb Time International 1.0 RATIO Ratio Activated Partial 27.3 SEC Thromboplast Time MDM Medical Decision Making Medical Screen Exam Complete: Yes Emergency Medical Condition: Yes Medical Record Reviewed: Yes Differential Diagnosis Gastritis, peptic ulcer disease, pancreatitis, hepatobiliary disease, ACS Narrative Course Initial vital signs show blood pressure of 221/100 which improved to 170/77 after the patient received pain medication, heart rate 59, pulse ox 99% on room air, oral temp of 98F. CBC is unremarkable. CMP is unremarkable. Lipase is 272. Cardiac enzymes are negative. UA Shows small occult blood, 9 RBCs, 1 WBC, few mucus, hazy urine. UA from 2 days ago grew out gram-negative rods. From 2 weeks ago grew out Escherichia coli that was pansensitive. Patient was started on Bactrim 2 days ago. I decided to give her a dose of Rocephin IV here in the emergency department. Patient was given an liter of normal saline IV, morphine, and GI cocktail, and on reassessment she is sleeping comfortably. I do not believe her symptoms are cardiac in nature. Her EKG is not ischemic and is unchanged from prior. Her cardiac enzymes are negative. She did have some epigastric tenderness on exam. No peritoneal signs. No right upper quadrant tenderness. Negative Rico sign. I do not believe that there is an acute/surgical intra-abdominal process to warrant further imaging at this time. Patient tells me that she wants a surgery to get rid of her gastric ulcers. She was made aware of all laboratory findings. She is stable for discharge home with outpatient follow-up with her primary care physician this week. I will also give her the name of the director clinical information services automation engineering technician with whom to follow-up with. She tells me she takes Zantac daily. I will give her prescription for Carafate. She was informed on when to return to the emergency department. She verbalizes understanding and agreement with plan. Diagnosis Primary Impression: Epigastric abdominal pain Referrals: Bulmaro Peters MD 3 days [employer] Mach[employer] Primary Care Physician 3 days Additional Instructions: Follow-up with your primary care physician this week. Follow-up with director clinical information services Dr. Peters or director clinical information services of your choice this week. Return to the emergency department for worsening symptoms or any other concerns. Scripts Sucralfate (Carafate)1 Gm Tab1 Gm PO TID #90 TAB Ref 0 On empty stomach Prov:Rafael Loera MD 11/06/16 Disposition: 01 DISCHARGE HOME Condition: Stable Rafael Loera MD November 06, 2016 04:28
[2016-11-06 04:47] LABS: ALKALINE PHOSPHATASE 86 U/L (45-117); ALT (GPT) 26 U/L (10-53); ANION GAP 8 MEQ/L (5-15); AST (GOT) 26 U/L (15-37); BICARBONATE 26.2 MEQ/L (21.0-32.0); BLOOD UREA NITROGEN 18 MG/DL (7-18); CHLORIDE 103 MEQ/L (98-107); GLOMERULAR FILTRATION RATE 59 ML/MIN (>89); SODIUM (NA) 137 MEQ/L (136-145); TOTAL BILIRUBIN ADULT 0.4 MG/DL (0.2-1.0)
[2016-11-06 04:48] LABS: CREATINE KINASE 67 U/L (26-192); POTASSIUM 4.3 MEQ/L (3.5-5.1)
[2016-11-06 04:52] VITALS: BP 170/77; PULSE 55; RESP 14; O2SAT 97
[2016-11-06] MEDS ORDERED: cefTRIAXone INJ 1,000 MG in SODIUM CHLORIDE 0.9% INJ 100 ML IV ONE (05:00)
[2016-11-06 05:05] LABS: AUTOMATED NEUTROPHIL # 4.6 TH/MM3 (1.8-7.7); BASOPHIL % 0.6 % (0.0-2.0); EOSINOPHIL # 0.1 TH/MM3 (0-0.4); EOSINOPHIL % 1.3 % (0.0-4.0); HEMATOCRIT 36.1 % (35.0-46.0); HEMO FLAGS DIFF FINAL; LYMPH % 29.3 % (9.0-44.0); LYMPHOCYTE # 2.2 TH/MM3 (1.0-4.8); MEAN CELL VOLUME 81.5 FL (80.0-100.0); MEAN CORPUSCULAR HEMOGLOBIN 27.8 PG (27.0-34.0); MEAN CORPUSCULAR HGB CONC 34.1 % (32.0-36.0); MONO % 7.1 % (0.0-8.0); NEUT % 61.7 % (16.0-70.0); PLATELET COUNT 220 TH/MM3 (150-450); RED BLOOD COUNT 4.43 MIL/MM3 (4.00-5.30); RED CELL DISTRIBUTION WIDTH 15.1 % (11.6-17.2); WHITE BLOOD COUNT 7.4 TH/MM3 (4.0-11.0)
[2016-11-06 05:19] LABS: BLOOD, URINE SMALL (NEG); GLUCOSE,URINE NEG (NEG); HYALINE CAST, URINE 2 /lpf (RARE); KETONE, URINE NEG (NEG); MUCUS URINE FEW /lpf (OCC); NITRITE,URINE NEG (NEG); PH, URINE 6.5 (5.0-8.5); SQUAMOUS EPITHELIAL CELL URINE 2 /hpf (0-5); URINE COLOR YELLOW (YELLW/STRAW)
[2016-11-06 05:20] LABS: COMMENT (UR) CULT NOT INDICATED; CULTURE IF INDICATED CULT NOT INDICATED
[2016-11-06 05:23] LABS: APTT (PATIENT) 27.3 SEC (24.3-30.1); PROTHROMBIN TIME - PATIENT 10.7 SEC (9.8-11.6)
[2016-11-06] MEDS ORDERED: CARA1TAB6 PO (05:36)
[2016-11-06] MEDS ORDERED: SUCRALFATE 1 GM TAB PO ONE (05:45)
--- NOTE | 2016-11-06 08:33 | EKG ---
Date Performed: 11/06/2016 Time Performed: 04:05:23 PTAGE: 66 years EKG: SINUS BRADYCARDIA SEPTAL MYOCARDIAL INFARCTION ABNORMAL ECG PREVIOUS TRACING : 10/18/2016 23.43 DOCTOR: Ko Villanueva Interpretating Date/Time 11/06/2016 08:32:02
== END 2016-11-06 06:07 | disposition home or self-care (01) ==
LOC: NEPE 03:48
DX: R10.13 Epigastric pain (principal); R11.2 Nausea with vomiting, unspecified; R94.31 Abnormal electrocardiogram [ECG] [EKG]; I10 Essential (primary) hypertension; E78.00 Pure hypercholesterolemia, unspecified; I25.2 Old myocardial infarction; Z87.19 Personal history of other diseases of the digestive system; Z85.42 Personal history of malignant neoplasm of other parts of uterus; Z85.3 Personal history of malignant neoplasm of breast; Z86.79 Personal history of other diseases of the circulatory system; Z87.448 Personal history of other diseases of urinary system; Z87.39 Personal history of other diseases of the musculoskeletal system and connective tissue; Z86.69 Personal history of other diseases of the nervous system and sense organs; Z87.09 Personal history of other diseases of the respiratory system
CPT/HCPCS: 80053; 81001; 82550; 83690; 84484; 85025; 85610; 85730; 93005; 96374; 96375; 99284; J0696; J2270; J2405; J7030

== ENCOUNTER 2016-11-08 22:34 | Emergency (ER) | payer MEDICARE, OTHER ==
[~2016-11-08] VITALS: Ht 165.1 cm; Wt 63.0 kg
[~2016-11-08 22:34] MED LIST changes: +CARA1TAB6 PO
[2016-11-08 22:41] VITALS: BP 169/75; PULSE 53; RESP 16; TEMP 97.7; O2SAT 98
[2016-11-08] MEDS ORDERED: SODIUM CHLORIDE 0.9% FLUSH 10 ML FLUSH IVF PRN (23:00)
[2016-11-08 23:04] LABS: AUTOMATED NEUTROPHIL # 4.1 TH/MM3 (1.8-7.7); BASOPHIL % 0.5 % (0.0-2.0); EOSINOPHIL # 0.1 TH/MM3 (0-0.4); EOSINOPHIL % 1.3 % (0.0-4.0); HEMATOCRIT 34.2 % (35.0-46.0); HEMO FLAGS DIFF FINAL; LYMPHOCYTE # 2.7 TH/MM3 (1.0-4.8); MEAN CELL VOLUME 80.7 FL (80.0-100.0); MEAN CORPUSCULAR HEMOGLOBIN 28.1 PG (27.0-34.0); MEAN CORPUSCULAR HGB CONC 34.7 % (32.0-36.0); MONO % 6.5 % (0.0-8.0); NEUT % 55.7 % (16.0-70.0); PLATELET COUNT 229 TH/MM3 (150-450); RED BLOOD COUNT 4.23 MIL/MM3 (4.00-5.30); RED CELL DISTRIBUTION WIDTH 15.1 % (11.6-17.2); WHITE BLOOD COUNT 7.4 TH/MM3 (4.0-11.0)
[2016-11-08 23:27] LABS: ALKALINE PHOSPHATASE 87 U/L (45-117); TOTAL BILIRUBIN ADULT 0.4 MG/DL (0.2-1.0)
--- NOTE | 2016-11-08 23:27 | PD ---
HPI Chief Complaint: OD/ Ingestion Time Seen by Provider: 22:41 Travel History International Travel<30 days: No Contact w/Intl Traveler<30days: No Traveled to known affect area: No History of Present Illness HPI This is a 66-year-old female who presents to the emergency department with concern for overdose. The patient doesn't provide much history and has some slurred speech. I spoke to her son who says she has a long history of depression and is very concerned about her. He reports that over the past several months she's been displaying reckless behavior, has been shoplifting, and has been going from hospital to hospital "pill shopping". He says he think she is self-medicating because of her mental health problems. He says that for the past 2 months his sister has been living with her and has noticed the same behavioral problems and today her sister got worried because her mom took a handful of pills this afternoon and seems more lethargic and confused. The son is hopeful that we can involve mental health to get his mom some help. PFSH Past Medical History Arthritis: No Asthma: No Autoimmune Disease: No Blood Disorders: No Heart Rhythm Problems: No Cancer: Yes Cardiac Catheterization: Yes Cardiovascular Problems: Yes High Cholesterol: Yes Chemotherapy: Yes (1998) Chest Pain: Yes Congestive Heart Failure: No COPD: No Cerebrovascular Accident: No Coronary Artery Disease: Yes Diabetes: No Diminished Hearing: No Endocrine: No Gastrointestinal Disorders: Yes (stomach ulcers; gastroparesis) GERD: Yes Glaucoma: No Genitourinary: Yes Headaches: Yes Hepatitis: No Hiatal Hernia: No Hypertension: Yes Immune Disorder: No Kidney Stones: No Musculoskeletal: Yes Neurologic: Yes Psychiatric: No Reproductive: No Respiratory: Yes Immunizations Current: No Migraines: No Myocardial Infarction: Yes Radiation Therapy: Yes (1998) Renal Failure: No Seizures: No Sickle Cell Disease: No Sleep Apnea: No Thyroid Disease: No Ulcer: Yes PNEUMOCCOCAL Vaccine (Year): 2 Menopausal: Yes : 5 Para: 5 Past Surgical History Abdominal Surgery: No AICD: No Appendectomy: No Arteriovenous Shunt: No Cardiac Surgery: Yes (ANGIOPLASTY IN [place] IN 2005) Cholecystectomy: No Coronary Stent: Yes Ear Surgery: No Endocrine Surgery: No Eye Surgery: No Gynecologic Surgery: Yes (CERVIX ECTOMY) Hysterectomy: Yes Insulin Pump: No Joint Replacement: No Oral Surgery: No Pacemaker: No Thoracic Surgery: No Other Surgery: Yes Family History Family Myocardial Infarction: Yes (BROTHER, FATHER) Social History Alcohol Use: No Tobacco Use: No Substance Use: No Allergies-Medications (Allergen,Severity, Reaction): Coded Allergies: No Known Allergies (Verified , 11/04/16) Reported Meds & Prescriptions Reported Meds & Active Scripts Active Carafate (Sucralfate) 1 Gm Tab 1 Gm PO TID On empty stomach Pepcid (Famotidine) 20 Mg Tab 10 Mg PO BID PRN Phenergan (Promethazine HCl) 25 Mg Tab 25 Mg PO Q6H PRN Bactrim DS (Sulfamethoxazole-Trimethoprim) 800-160 Mg Tab 1 Tab PO BID Reported Clonidine (Clonidine HCl) 0.1 Mg Tab 0.1 Mg PO BID Sertraline (Sertraline HCl) 50 Mg Tab 50 Mg PO DAILY Tramadol (Tramadol HCl) 50 Mg Tab 50 Mg PO Q6H PRN Meloxicam 15 Mg Tab 15 Mg PO DAILY Metoprolol Tartrate 50 Mg Tab 50 Mg PO BID Physical Exam Narrative GENERAL:Well appearing, no acute distress SKIN: Focused skin assessment warm and dry. HEAD: Atraumatic. Normocephalic. EYES: Pupils equal and round. No injection or drainage. ENT: Moist mucous membranes NECK: Trachea midline. CARDIOVASCULAR: Regular rate and rhythm. No murmur appreciated. RESPIRATORY: Clear to auscultation. Breath sounds equal bilaterally. GASTROINTESTINAL: Abdomen soft, non-tender, nondistended. MUSCULOSKELETAL: No obvious deformities. NEUROLOGICAL: Awake and alert. No obvious cranial nerve deficits. Some slurred speech fired PSYCHIATRIC: Poor eye contact, poor insight and judgment Data Data Last Documented VS Vital Signs Date Time Temp Pulse Resp B/P Pulse Ox O2 Delivery O2 Flow Rate FiO2 11/08/16 22:41 97.7 53 16 169/75 98 Room Air Orders Complete Blood Count With Diff (11/08/16 22:49) Comprehensive Metabolic Panel (11/08/16 22:49) Urinalysis - C+S If Indicated (11/08/16 22:49) Iv Access Insert/Monitor (11/08/16 22:49) Ecg Monitoring (11/08/16 22:49) Oximetry (11/08/16 22:49) Sodium Chloride 0.9% Flush (Ns Flush) (11/08/16 23:00) Drug Screen, Random Urine (11/08/16 22:49) Alcohol (Ethanol) (11/08/16 22:49) Salicylates (Aspirin) (11/08/16 22:49) Tylenol (Acetaminophen) (11/08/16 22:49) Electrocardiogram (11/08/16 ) Ct Brain W/O Iv Contrast(Rout) (11/08/16 ) Psych Screen (11/08/16 23:23) Labs Laboratory Tests Test 11/08/16 22:57 White Blood Count 7.4 TH/MM3 Red Blood Count 4.23 MIL/MM3 Hemoglobin 11.9 GM/DL Hematocrit 34.2 % Mean Corpuscular Volume 80.7 FL Mean Corpuscular Hemoglobin 28.1 PG Mean Corpuscular Hemoglobin 34.7 % Concent Red Cell Distribution Width 15.1 % Platelet Count 229 TH/MM3 Mean Platelet Volume 9.6 FL Neutrophils (%) (Auto) 55.7 % Lymphocytes (%) (Auto) 36.0 % Monocytes (%) (Auto) 6.5 % Eosinophils (%) (Auto) 1.3 % Basophils (%) (Auto) 0.5 % Neutrophils # (Auto) 4.1 TH/MM3 Lymphocytes # (Auto) 2.7 TH/MM3 Monocytes # (Auto) 0.5 TH/MM3 Eosinophils # (Auto) 0.1 TH/MM3 Basophils # (Auto) 0.0 TH/MM3 CBC Comment DIFF FINAL Differential Comment Sodium Level 140 MEQ/L Potassium Level 3.9 MEQ/L Chloride Level 104 MEQ/L Carbon Dioxide Level 26.8 MEQ/L Anion Gap 9 MEQ/L Blood Urea Nitrogen 17 MG/DL Creatinine 1.25 MG/DL Estimat Glomerular Filtration 43 ML/MIN Rate Random Glucose 85 MG/DL Calcium Level 9.0 MG/DL Total Bilirubin 0.4 MG/DL Aspartate Amino Transf 24 U/L (AST/SGOT) Alanine Aminotransferase 26 U/L (ALT/SGPT) Alkaline Phosphatase 87 U/L Total Protein 7.6 GM/DL Albumin 3.3 GM/DL Salicylates Level LESS THAN 1.7 MG/DL Acetaminophen Level LESS THAN 2.0 MCG/ML Ethyl Alcohol Level LESS THAN 3 MG/DL MDM Medical Decision Making Medical Screen Exam Complete: Yes Emergency Medical Condition: Yes Interpretation(s) Afebrile, rate of cardiac, hypertensive No leukocytosis Mild renal insufficiency Salicylates are negative Acetaminophen is negative Alcohol negative EKG demonstrates sinus bradycardia with some ST segment flattening in the lateral leads Differential Diagnosis Depression, medication overdose, adjustment reaction Narrative Course This is a 66-year-old female who presents to the emergency department with a history of chronic abdominal pain and depression sent by her family for concern for medication abuse. Her daughter reportedly witnessed her this afternoon taking a handful of her pills. Her family doesn't think she was trying to kill her self but they think she is trying to self medicate and she's been ill shopping at different hospitals. I spoke to her son who requests that the psychiatric team call him regarding what been going on with the patient. I do think the patient requires evaluation. She does appear depressed and this does appear to be a dangerous pattern of medication misuse. Medically she is placed on a monitor and an IV was established. She was found to be slightly bradycardic. Her blood pressure was normal, labs were all reassuring and she became increasingly aware in the emergency Department. I think she is medically cleared and appropriate for psychiatric evaluation. Juliana Mae MD November 08, 2016 23:27
--- NOTE | 2016-11-08 23:36 | RADRPT ---
EXAM DATE/TIME: 11/08/2016 23:23 [facility] COMPARISON: No previous studies available for comparison. INDICATIONS : Altered mental status. RADIATION DOSE: 56.35 CTDIvol (mGy) MEDICAL HISTORY : Hypertension. SURGICAL HISTORY : None. ENCOUNTER: Initial ACUITY: 1 day PAIN SCALE: 0/10 LOCATION: cranial TECHNIQUE: Multiple contiguous axial images were obtained of the head. Using automated exposure control and adj ustment of the mA and/or kV according to patient size, radiation dose was kept as low as reasonably a chievable to obtain optimal diagnostic quality images. FINDINGS: There is marked central and cortical atrophy with dilatation of ventricular and sulcal spaces. There is no parenchymal hemorrhage, acute infarction or mass lesion identified. There are no extra-axial fluid collections appreciated. The posterior fossa is unremarkable with midline fourth ventricle. T he portion of the orbits and paranasal sinuses visualized are unremarkable. CONCLUSION: Cerebral atrophy. No acute intracranial abnormality. Chris Ricks MD on November 08, 2016 at 23:34 Board Certified Radiologist. This report was verified electronically.
[2016-11-08 23:40] LABS: ALT (GPT) 26 U/L (10-53); ANION GAP 9 MEQ/L (5-15); AST (GOT) 24 U/L (15-37); BICARBONATE 26.8 MEQ/L (21.0-32.0); BLOOD UREA NITROGEN 17 MG/DL (7-18); CHLORIDE 104 MEQ/L (98-107); GLOMERULAR FILTRATION RATE 43 ML/MIN (>89); SODIUM (NA) 140 MEQ/L (136-145)
[2016-11-08 23:44] LABS: ACETAMINOPHEN LESS THAN 2.0 MCG/ML (10.0-30.0); POTASSIUM 3.9 MEQ/L (3.5-5.1)
[2016-11-09 01:28] VITALS: BP 191/84; PULSE 45; RESP 15; O2SAT 99
[2016-11-09 02:51] VITALS: BP 154/68; PULSE 46; RESP 15; O2SAT 96
[2016-11-09 04:44] LABS: AMPHETAMINE, URINE NEG (NEG); BARBITURATES, URINE NEG (NEG); COCAINE, URINE NEG (NEG)
[2016-11-09 04:45] LABS: BLOOD, URINE NEG (NEG); COMMENT (UR) CULT NOT INDICATED; CULTURE IF INDICATED CULT NOT INDICATED; GLUCOSE,URINE NEG (NEG); KETONE, URINE NEG (NEG); MUCUS URINE FEW /lpf (OCC); NITRITE,URINE NEG (NEG); SQUAMOUS EPITHELIAL CELL URINE <1 /hpf (0-5); URINE COLOR LIGHT-YELLOW (YELLW/STRAW)
[2016-11-09 07:10] VITALS: BP 150/81; PULSE 59; RESP 17; TEMP 98.1; O2SAT 99
[2016-11-09 09:52] VITALS: BP 130/77; TEMP 97.8
--- NOTE | 2016-11-09 09:54 | EKG ---
Date Performed: 11/08/2016 Time Performed: 23:29:37 PTAGE: 66 years EKG: SINUS BRADYCARDIA WITH SINUS ARRHYTHMIA ABNORMAL ECG PREVIOUS TRACING : 11/06/2016 04.05 DOCTOR: Nohelia Mcpherson Interpretating Date/Time 11/09/2016 09:52:47
--- NOTE | 2016-11-09 12:55 | MB ---
cc: LAWRENCE JACOBSON DATE OF CONSULTATION: 11/09/2016 PHYSICIAN REQUESTING CONSULTATION: Emergency department. REASON FOR CONSULTATION: Psychiatric evaluation . HISTORY OF PRESENT ILLNESS: Ms. Nation is a 66-year-old female with no reported past psychiatric history who presents on a voluntary basis to the emergency department. There was apparently some concern from family regarding medication over use and "pill shopping." Her urine toxicology was negative and her alcohol level was undetectable and Tylenol and salicylate level were both undetectable as well on presentation here. Reviewing the electronic medical record, I see no prior psychiatric contact within our system. The patient seen and examined. Chart reviewed. Case discussed with nursing staff. On my examination today, the patient is requesting discharge from the emergency room. She says that she came in for stomach pain, not for medication ingestion. She says that she has been having this pain for 15 days. She denies any low mood. No anhedonia. She does admit to some poor oral intake related to the stomach pain but reports that she is sleeping fairly well. She denies any hopelessness or worthlessness. She denies any suicidal ideation, intent or plan on direct questioning and sites her Christian rebeka as a reason why she would never hurt herself. No hypomanic or manic symptoms. Denies any audiovisual hallucinations. I can elicit no delusional beliefs. The remainder of the psychiatric ROS is negative. The patient is requesting discharge as I said from the emergency department today. PAST PSYCHIATRIC HISTORY The patient denies any history of psychiatric admissions or suicide attempts. She denies any history of psychiatric diagnosis. FAMILY HISTORY The patient denies any family history of serious mental illness or suicide. CHEMICAL DEPENDENCY HISTORY: The patient denies any medication over use. She denies any abuse of drugs or alcohol. SOCIAL HISTORY The patient reports that she lives with her daughter. She has been for 3 or 4 months. She has four children. She is retired courtesy booth cashier. Denies any access to guns or firearms. Denies any or legal history. She is of a Christian rebeka. PAST MEDICAL HISTORY Besides the stomach issue, no reported medical issues. REVIEW OF SYSTEMS No reported headache, no reported physical complaints. PHYSICAL EXAMINATION VITAL SIGNS: temperature 98.1, pulse 58, respirations 16, blood pressure 150/81, pulse oximetry 99% on room air. Physical examination completed by the ED provider. On my examination today, the patient appears to be attending to her basic needs. She is in no great physical distress. No abnormal motor movements noted. LABORATORY Reviewed, toxicology results as above. MENTAL STATUS EXAM The patient is in hospital gown. She is fairly well-groomed and certainly maintaining basic hygiene and attending to basic needs. She is awake, alert and oriented x3. No evidence of delirium. No motor abnormalities noted. Speech is somewhat soft but otherwise within normal limits for rate and tone. Language and fund of knowledge seem average. The patient denies low mood or elevated mood. Affect is somewhat blunted. Thought process linear. No loosening of associations. No evident delusions. Denies audiovisual hallucinations. Denies suicidal or homicidal ideation, intent or plan. Insight and judgment are perhaps fair. ASSESSMENT/PLAN: 1. Adjustment disorder, unspecified, F43.20 This is a 66-year-old female with psychiatric history as detailed above who presents voluntarily to the emergency department. On my evaluation today, the patient denies any suicidal or homicidal ideation. She says that she would never hurt herself on account of her Christian rebeka. I can detect no severely unstable mood, anxiety or psychotic disorder in this patient at this time. She appears to be attending to her basic needs. Putting all this information together, I supervisor special education that the patient does not meet [place] ACT criteria at this time. Given the concerns of the family. I do think she might benefit from an observation admission on a voluntary basis and I have suggested this to her, but she has declined. I have recommended outpatient psychiatric followup therefore and the nurse will provide the appropriate referrals. I have counseled the patient regarding warning signs for need to return to the psychiatric emergency room as part of a general safety plan. The patient is otherwise psychiatrically clear for discharge from the emergency department. Thank you very much for this consultation. Lawrence Echevarria /8:55 AM /12:41 PM HUSAM
== END 2016-11-09 09:51 | disposition home or self-care (01) ==
LOC: NEPE 22:34
DX: F43.20 Adjustment disorder, unspecified (principal); F33.9 Major depressive disorder, recurrent, unspecified; E78.00 Pure hypercholesterolemia, unspecified; I10 Essential (primary) hypertension; I25.2 Old myocardial infarction; N28.9 Disorder of kidney and ureter, unspecified; R00.1 Bradycardia, unspecified; R94.31 Abnormal electrocardiogram [ECG] [EKG]; R41.82 Altered mental status, unspecified
CPT/HCPCS: 70450; 80053; 80307; 81001; 85025; 93005

== ENCOUNTER 2016-11-18 22:47 | Observation (INO) | payer MEDICARE, OTHER ==
[~2016-11-18] VITALS: Ht 160 cm; Wt 63.6 kg
[~2016-11-18 22:47] MED LIST changes: -BACT800T5 PO
[2016-11-18 23:00] VITALS: BP 135/81; PULSE 62; RESP 16; TEMP 98.3; O2SAT 96
[2016-11-18] MEDS ORDERED: PANTOPRAZOLE SODIUM 40 MG VIAL IV PUSH ONE (23:00)
[2016-11-18] MEDS ORDERED: NITROGLYCERIN 2% OINT 1 GM PACKET TOPICAL ONE (23:00)
[2016-11-18] MEDS ORDERED: ONDANSETRON HCL 4 MG/2 ML VIAL IV ONE (23:00)
[2016-11-18] MEDS ORDERED: SODIUM CHLORID 0.9% 500 ML INJ 500 ML IV ONE (23:00)
[2016-11-18 23:04] VITALS: O2SAT 96
[2016-11-18 23:14] LABS: AUTOMATED NEUTROPHIL # 4.1 TH/MM3 (1.8-7.7); BASOPHIL # 0.1 TH/MM3 (0-0.2); BASOPHIL % 0.9 % (0.0-2.0); EOSINOPHIL # 0.2 TH/MM3 (0-0.4); HEMATOCRIT 40.4 % (35.0-46.0); HEMO FLAGS DIFF FINAL; LYMPH % 40.3 % (9.0-44.0); LYMPHOCYTE # 3.3 TH/MM3 (1.0-4.8); MEAN CELL VOLUME 81.2 FL (80.0-100.0); MEAN CORPUSCULAR HEMOGLOBIN 27.9 PG (27.0-34.0); MEAN CORPUSCULAR HGB CONC 34.4 % (32.0-36.0); MONO % 6.4 % (0.0-8.0); NEUT % 50.4 % (16.0-70.0); PLATELET COUNT 285 TH/MM3 (150-450); RED BLOOD COUNT 4.98 MIL/MM3 (4.00-5.30); RED CELL DISTRIBUTION WIDTH 15.8 % (11.6-17.2); WHITE BLOOD COUNT 8.2 TH/MM3 (4.0-11.0)
--- NOTE | 2016-11-18 23:26 | PD ---
HPI Chief Complaint: Chest Pain Time Seen by Provider: 22:51 Travel History International Travel<30 days: No Contact w/Intl Traveler<30days: No Traveled to known affect area: No History of Present Illness HPI The patient is a 66 year old female who presents to the [facility] emergency department with a history of chest pain in the left side of her chest associated with midepigastric abdominal pain that began at approximately 9 PM. The patient reports that the pain is coming and going. She reports that the pain as a 10 on a 10 in severity and feels like a punching sensation in her chest. The patient reports having nausea and vomiting times one prior to arrival. The patient reports that she has had a history of heart attack in the past, however she is unsure exactly when stating it was "a long time ago". She also has difficulty recalling when she last had a stress test. The patient is a poor historian, having difficulty with providing a significant amount of her history, repeatedly stating that I can look in the computer for her medication and history. The patient reports that her primary care physician is . The patient has a past medical history that is significant for hyperlipidemia, hypertension, chronic back pain, chronic abdominal pain, acid reflux, peptic ulcer disease. The patient incidentally also reports on review of systems having a 2 week history of dysuria with urinary frequency, urgency, and dark coloration of her urine. She reports having shortness of breath associated with the chest pain and midepigastric abdominal pain. She denies having any radiation of the pain. She denies having any diaphoresis. She denies having any diarrhea. She reports that she has been moving her bowels regularly. The patient denies any recent fevers, cough, congestion, neck pain, or neurologic symptoms. [facility] Past Medical History Narrative Medical The patient's past medical history is significant for chronic back pain, acid reflux, peptic ulcer disease, hypertension, hyperlipidemia, reported history of myocardial infarction "a long time ago". Arthritis: No Asthma: No Autoimmune Disease: No Blood Disorders: No Heart Rhythm Problems: No Cancer: Yes Cardiac Catheterization: Yes Cardiovascular Problems: Yes High Cholesterol: Yes Chemotherapy: Yes (1998) Chest Pain: Yes Congestive Heart Failure: No COPD: No Cerebrovascular Accident: Yes Coronary Artery Disease: Yes Diabetes: No Diminished Hearing: No Endocrine: No Gastrointestinal Disorders: Yes (stomach ulcers; gastroparesis) GERD: Yes Glaucoma: No Genitourinary: Yes Headaches: Yes Hepatitis: No Hiatal Hernia: No Hypertension: Yes Immune Disorder: No Kidney Stones: No Musculoskeletal: Yes Neurologic: Yes Psychiatric: No Reproductive: No Respiratory: Yes Immunizations Current: No Migraines: No Myocardial Infarction: Yes Radiation Therapy: Yes (1998) Renal Failure: No Seizures: No Sickle Cell Disease: No Sleep Apnea: No Thyroid Disease: No Ulcer: Yes PNEUMOCCOCAL Vaccine (Year): 2 ?: Not Menopausal: Yes : 5 Para: 5 Past Surgical History Narrative Surgical The patient's past surgical history is significant for a gynecologic surgery that the patient cannot recall the name of. The patient is unsure whether she is ever had a cardiac catheterization done previously. Abdominal Surgery: No AICD: No Appendectomy: No Arteriovenous Shunt: No Cardiac Surgery: Yes ([place]) Cholecystectomy: No Coronary Stent: Yes Ear Surgery: No Endocrine Surgery: No Eye Surgery: No Gynecologic Surgery: Yes (CERVIX ECTOMY) Hysterectomy: Yes Insulin Pump: No Joint Replacement: No Neurologic Surgery: No Oral Surgery: No Pacemaker: No Thoracic Surgery: No Other Surgery: Yes Family History Family Myocardial Infarction: Yes (BROTHER, FATHER) Social History Alcohol Use: No Tobacco Use: No Substance Use: No Allergies-Medications (Allergen,Severity, Reaction): Coded Allergies: No Known Allergies (Verified , 11/04/16) Reported Meds & Prescriptions Reported Meds & Active Scripts Active Carafate (Sucralfate) 1 Gm Tab 1 Gm PO TID On empty stomach Pepcid (Famotidine) 20 Mg Tab 10 Mg PO BID PRN Phenergan (Promethazine HCl) 25 Mg Tab 25 Mg PO Q6H PRN Reported Clonidine (Clonidine HCl) 0.1 Mg Tab 0.1 Mg PO BID Sertraline (Sertraline HCl) 50 Mg Tab 50 Mg PO DAILY Tramadol (Tramadol HCl) 50 Mg Tab 50 Mg PO Q6H PRN Meloxicam 15 Mg Tab 15 Mg PO DAILY Metoprolol Tartrate 50 Mg Tab 50 Mg PO BID Review of Systems General / Constitutional: No: Fever Eyes: No: Visual changes HENT: No: Headaches Cardiovascular: Positive: Chest Pain or Discomfort, Dyspnea on exertion Respiratory: No: Shortness of Breath Gastrointestinal: Positive: Nausea, Vomiting, Abdominal Pain, Indigestion, No : Diarrhea, Hematemesis, Hematochezia, Constipation, Changes in Bowel Habits, Loss of Appetite Genitourinary: Positive: Urgency, Frequency, Dysuria Musculoskeletal: No: Pain Skin: No Rash Neurologic: No: Weakness Psychiatric: No: Depression Endocrine: No: Polydipsia Hematologic/Lymphatic: No: Easy Bruising Physical Exam Narrative General: The patient is a well-developed well-nourished female in no acute distress. Head and Neck exam: Head is normocephalic atraumatic. Eyes: EOMI, pupils are equal round and reactive to light. Nose: Midline septum with pink mucous membranes Mouth: Dentition unremarkable. Moist mucus membranes. Posterior oropharynx is not erythematous. No tonsillar hypertrophy. Uvula midline. Airway patent. Neck: No palpable lymphadenopathy. No nuchal rigidity. No thyromegaly. Cardiovascular: Regular rate and rhythm without murmurs, gallops, or rubs. Lungs: Clear to auscultation bilaterally. No wheezes, rhonchi, or rales. Abdomen: Soft, with midepigastric abdominal discomfort on deep palpation, no other tenderness on palpation of the other 4 quadrants of the abdomen. No guarding, rebound, or rigidity. Negative Ravena sign. Normal bowel sounds are audible. No tenderness on palpation of McBurney's point. Extremities: No clubbing, cyanosis, or edema. 2+ pulses in all 4 extremities. Calf tenderness on palpation. Back: No costovertebral angle tenderness to palpation on the left, CVA tenderness is noted on the right. Neurologic Exam: Grossly nonfocal. Skin Exam: No rash noted. Intact skin that is warm and dry. Data Data Last Documented VS Vital Signs Date Time Temp Pulse Resp B/P Pulse Ox O2 Delivery O2 Flow Rate FiO2 11/19/16 00:08 52 16 197/93 97 Room Air 11/18/16 23:00 98.3 Orders Electrocardiogram (11/18/16 22:58) Complete Blood Count With Diff (11/18/16 22:58) Comprehensive Metabolic Panel (11/18/16 22:58) Creatine Kinase (Cpk) (11/18/16 22:58) Ckmb (Isoenzyme) Profile (11/18/16 22:58) Troponin I (11/18/16 22:58) B-Type Natriuretic Peptide (11/18/16 22:58) Prothrombin Time / Inr (Pt) (11/18/16 22:58) Act Partial Throm Time (Ptt) (11/18/16 22:58) Lipase (11/18/16:58) Urinalysis - C+S If Indicated (11/18/16 22:58) Magnesium (Mg) (11/18/16 22:58) Chest, Single Ap (11/18/16 22:58) Iv Access Insert/Monitor (11/18/16:58) Ecg Monitoring (11/18/16 22:58) Oximetry (11/18/16 22:58) Ondansetron Inj (Zofran Inj) (11/18/16 23:00) Sodium Chlorid 0.9% 500 Ml Inj (Ns 500 M (11/18/16 23:00) Nitroglycerin 2% Oint (Nitroglycerin 2% (11/18/16 23:00) Pantoprazole Inj (Protonix Inj) (11/18/16 23:00) Sodium Chlor 0.9% 1000 Ml Inj (Ns 1000 M (11/19/16 01:30) Morphine Inj (Morphine Inj) (11/19/16 01:30) Ceftriaxone Inj (Rocephin Inj) (11/19/16 01:30) Admit Order (Ed Use Only) (11/19/16 01:29) Labs Laboratory Tests Test 11/18/16 11/19/16 23:04 00:05 White Blood Count 8.2 TH/MM3 Red Blood Count 4.98 MIL/MM3 Hemoglobin 13.9 GM/DL Hematocrit 40.4 % Mean Corpuscular Volume 81.2 FL Mean Corpuscular Hemoglobin 27.9 PG Mean Corpuscular Hemoglobin 34.4 % Concent Red Cell Distribution Width 15.8 % Platelet Count 285 TH/MM3 Mean Platelet Volume 9.2 FL Neutrophils (%) (Auto) 50.4 % Lymphocytes (%) (Auto) 40.3 % Monocytes (%) (Auto) 6.4 % Eosinophils (%) (Auto) 2.0 % Basophils (%) (Auto) 0.9 % Neutrophils # (Auto) 4.1 TH/MM3 Lymphocytes # (Auto) 3.3 TH/MM3 Monocytes # (Auto) 0.5 TH/MM3 Eosinophils # (Auto) 0.2 TH/MM3 Basophils # (Auto) 0.1 TH/MM3 CBC Comment DIFF FINAL Differential Comment B-Type Natriuretic Peptide 39 PG/ML Prothrombin Time 10.5 SEC Prothromb Time International 1.0 RATIO Ratio Activated Partial 28.6 SEC Thromboplast Time Sodium Level 136 MEQ/L Potassium Level 3.7 MEQ/L Chloride Level 102 MEQ/L Carbon Dioxide Level 28.8 MEQ/L Anion Gap 5 MEQ/L Blood Urea Nitrogen 20 MG/DL Creatinine 1.48 MG/DL Estimat Glomerular Filtration 35 ML/MIN Rate Random Glucose 109 MG/DL Calcium Level 9.1 MG/DL Magnesium Level 2.0 MG/DL Total Bilirubin 0.3 MG/DL Aspartate Amino Transf 20 U/L (AST/SGOT) Alanine Aminotransferase 30 U/L (ALT/SGPT) Alkaline Phosphatase 86 U/L Total Creatine Kinase 27 U/L Troponin I LESS THAN 0.02 NG/ML Total Protein 7.7 GM/DL Albumin 3.5 GM/DL Lipase 282 U/L MDM Medical Decision Making Medical Screen Exam Complete: Yes Emergency Medical Condition: Yes Medical Record Reviewed: Yes Interpretation(s) Last Impressions Myocardial Perfusion Scan Nuc Med 11/19/16 0000 Signed Impressions: Service Date/Time: Saturday, November 19, 2016 10:13 - CONCLUSION: 1. Unremarkable myocardial perfusion scan. RISK CATEGORY: Low (<1%% Annual Mortality Rate ) Lawrence Tipton MD Chest X-Ray 11/18/16 2258 Signed Impressions: Service Date/Time: Friday, November 18, 2016 23:16 - CONCLUSION: No acute disease. Froilan Marinelli MD Differential Diagnosis Acute coronary syndrome, versus esophagitis, versus peptic ulcer disease, versus pancreatitis, versus pyelonephritis, versus anxiety disorder Narrative Course During the course of the patients emergency department visit, the patients history, examination, and differential diagnosis were reviewed with the patient. The patient had IV access obtained and blood work sent for analysis. The patient was placed on a director of cardiac rehabilitation with oximetry and blood pressure monitoring. An EKG was done on arrival. The patient's EKG reveals a sinus bradycardia heart rate of 59, no acute ST segment elevation, downsloping ST segments are noted in V5, V6., T waves are inverted in V1, V2. A review of the electronic medical record reveals that the patient has repeatedly been evaluated for midepigastric abdominal pain including with a CT scan of the abdomen and pelvis done on October 19, 2016 with IV contrast that showed no evidence of an acute abdominal or pelvic process, no masses were identified. The patient was initially provided aspirin 162 mg by mouth prior to arrival. The patient was given Protonix 40 mg IV. The patient was given nitroglycerin 1 inch to the chest wall, normal saline 500 mL bolus 1. Given the patient's reported suprapubic discomfort with associated dysuria, urinary frequency, and urinary urgency, the patient was treated with Rocephin for a suspected UTI while waiting urinalysis. The patients laboratory studies were reviewed and remarkable for CBC is within normal limits, CMP is remarkable for a BUN of 20, creatinine 1.48, lipase within normal limits, initial set of cardiac enzymes are within normal limits, BNP is less than 100. PT PTT within normal limits. Radiology studies were reviewed and remarkable for a chest x-ray that shows no acute abnormality. As the patient has not had any recent stress testing and reports having chest pain, the patient will be admitted to the chest pain center for rule out serial cardiac enzyme protocol. The patient was agreeable with this plan. The patients results were discussed with the patient, including the plan of care. I explained that further testing and/ or monitoring is indicated based on the patients history, examination, and/ or laboratory findings. Therefore, I recommended admission for additional evaluation. The patient expressed understanding and was agreeable with this plan. The patient was admitted to the hospital in stable condition and sent to a bed under the care of the chest pain center. Diagnosis Primary Impression: Chest pain, rule out acute myocardial infarction Admitting Information Admitting Physician Requests: Alisa Richard MD November 18, 2016 23:26
--- NOTE | 2016-11-18 23:28 | RADRPT ---
EXAM DATE/TIME: 11/18/2016 23:16 [facility] COMPARISON: CHEST SINGLE AP, October 18, 2016, 21:59. INDICATIONS : Chest pain. MEDICAL HISTORY : Hypertension. Myocardial infarction. Uterine and breast cancer. SURGICAL HISTORY : Coronary stent. Cardiac cath. ENCOUNTER: Initial ACUITY: 1 day PAIN SCORE: 0/10 LOCATION: Bilateral chest FINDINGS: A single view of the chest demonstrates the lungs to be symmetrically aerated without evidence of mas s, infiltrate or effusion. The cardiomediastinal contours are unremarkable. Osseous structures are intact. CONCLUSION: No acute disease. Froilan Marinelli MD on November 18, 2016 at 23:26 Board Certified Radiologist. This report was verified electronically.
[2016-11-19] VITALS (8 sets, daily range): BP systolic 138–197; BP diastolic 64–93; PULSE 52–58; RESP 14–22; TEMP 96–97.7; O2SAT 94–98
[2016-11-19 00:12] LABS: APTT (PATIENT) 28.6 SEC (24.3-30.1); PROTHROMBIN TIME - PATIENT 10.5 SEC (9.8-11.6)
[2016-11-19 00:47] LABS: ALT (GPT) 30 U/L (10-53); ANION GAP 5 MEQ/L (5-15); AST (GOT) 20 U/L (15-37); BICARBONATE 28.8 MEQ/L (21.0-32.0); BLOOD UREA NITROGEN 20 MG/DL (7-18); CHLORIDE 102 MEQ/L (98-107); GLOMERULAR FILTRATION RATE 35 ML/MIN (>89); POTASSIUM 3.7 MEQ/L (3.5-5.1); SODIUM (NA) 136 MEQ/L (136-145)
[2016-11-19 00:50] LABS: ALKALINE PHOSPHATASE 86 U/L (45-117); TOTAL BILIRUBIN ADULT 0.3 MG/DL (0.2-1.0)
[2016-11-19 01:03] LABS: CREATINE KINASE 27 U/L (26-192)
[2016-11-19] MEDS ORDERED: cefTRIAXone INJ 2,000 MG in SODIUM CHLORIDE 0.9% INJ 100 ML IV ONE (01:30)
[2016-11-19] MEDS ORDERED: MORPHINE SULFATE 4 MG/ML INJ IV PUSH ONE (01:30)
[2016-11-19] MEDS ORDERED: SODIUM CHLOR 0.9% 1000 ML INJ 1,000 ML IV ONE (01:30)
[2016-11-19] MEDS ORDERED: SODIUM CHLORIDE 0.9% FLUSH 10 ML FLUSH IV FLUSH PRN (02:00)
[2016-11-19] MEDS ORDERED: MORPHINE SULFATE 4 MG/ML INJ IV PRN (02:00)
[2016-11-19] MEDS ORDERED: ACETAMINOPHEN/HYDROcodone 325 MG/7.5 MG TAB PO PRN (02:00)
[2016-11-19] MEDS ORDERED: ONDANSETRON HCL 4 MG/2 ML VIAL IV PRN (02:00)
[2016-11-19 02:57] LABS: CREATINE KINASE 43 U/L (26-192)
[2016-11-19 03:12] LABS: BACTERIA, URINE RARE /hpf; BLOOD, URINE TRACE (NEG); GLUCOSE,URINE NEG (NEG); KETONE, URINE NEG (NEG); NITRITE,URINE NEG (NEG); PH, URINE 6.5 (5.0-8.5); URINE COLOR LIGHT-YELLOW (YELLW/STRAW)
[2016-11-19 03:13] LABS: COMMENT (UR) CULT NOT INDICATED; CULTURE IF INDICATED CULT NOT INDICATED
[2016-11-19] MEDS ORDERED: cloNIDine HCL 0.1 MG TAB PO ONE (04:00)
[2016-11-19 05:40] LABS: CREATINE KINASE 30 U/L (26-192)
[2016-11-19] MEDS ORDERED: SODIUM CHLORIDE 0.9% FLUSH 10 ML FLUSH IV FLUSH SCH (09:00)
[2016-11-19] MEDS ORDERED: METOPROLOL TARTRATE 50 MG TAB PO SCH (09:00)
[2016-11-19] MEDS ORDERED: PANTOPRAZOLE SOD 40 MG DELAYED RELEASE TAB PO SCH (09:00)
--- NOTE | 2016-11-19 10:24 | HHI.HP ---
HPI Primary Care Physician Unknown Chief Complaint Chest pain History of Present Illness This is a 66-year-old female that presents to the ED to evaluate chest discomfort. He states it was in the center of her chest. It felt as if a knife was stabbing her. It lasted 1 hour. She was short of breath and nauseous. Denies diaphoresis. Found nothing to improve or worsen the symptoms when she had them. Denies history of CAD. Cannot initially recall having stress testing but I reviewed her records and several years ago she had an adenosine thallium stress test was nonischemic. She also has been having abdominal pain for 2-3 months. States she has been seen in this hospital for this and her doctors also been evaluating her for this. She states she had a CAT scan and that did not explain her symptoms. Denies constipation, diarrhea, or blood in stool. She also states she has been treated for urinary tract infection and has been on antibiotics for this. She states her urine is still discolored and has frequent urination. Review of Systems General: Patient denies fevers, chills recent, and recent travel HEENT: Patient denies headache, sore throat, difficulty swallowing. Cardiovascular: Has the chest discomfort as mentioned above. Denies sensation of heart beating rapidly or irregularly. No syncope. Denies diaphoresis. Respiratory: She was short of breath. Denies shortness inspirational chest discomfort. Denies coughing wheezing or hemoptysis. GI: Patient was nauseous. She has had abdominal pain for the last 2-3 months. Patient denies vomiting, diarrhea, bloody stools. : Patient has had frequency with urination and discolored urination. Denies incontinence. Musculoskeletal: Patient denies joint pain or edema. Denies calf pain or edema. Neurovascular: Patient denies numbness, tingling, weakness in extremities. Denies headache. Endocrine: Denies polyuria and polydipsia. Hematologic: Denies easy bruising. Skin: Denies rash or itching. Past Family Social History Allergies: Coded Allergies: No Known Allergies (Verified , 11/04/16) Past Medical History Hypertension. Hyperlipidemia but denies any medications for this. She has had abdominal pain for the last 2-3 months and is still having that worked up with her primary care physician. Denies diabetes and known CAD. Past Surgical History Hysterectomy. Reported Medications Reported Meds & Active Scripts Active Carafate (Sucralfate) 1 Gm Tab 1 Gm PO TID On empty stomach Pepcid (Famotidine) 20 Mg Tab 10 Mg PO BID PRN Phenergan (Promethazine HCl) 25 Mg Tab 25 Mg PO Q6H PRN Reported Clonidine (Clonidine HCl) 0.1 Mg Tab 0.1 Mg PO BID Sertraline (Sertraline HCl) 50 Mg Tab 50 Mg PO DAILY Tramadol (Tramadol HCl) 50 Mg Tab 50 Mg PO Q6H PRN Meloxicam 15 Mg Tab 15 Mg PO DAILY Metoprolol Tartrate 50 Mg Tab 50 Mg PO BID Active Ordered Medications Current Medications Medications (Trade) Dose Ordered Sig/Hardeep Route Start Time Stop Time Status Last Admin (NS Flush) 2 ml UNSCH PRN IV FLUSH 11/19/16 02:00 (NS Flush) 2 ml BID IV FLUSH 11/19/16 09:00 11/19/16 08:22 ([place] 7.5-325 Mg) 1 tab Q4H PRN PO 11/19/16 02:00 (Morphine Inj) 2 mg Q4H PRN IV 11/19/16 02:00 (Zofran Inj) 4 mg Q6H PRN IV 11/19/16 02:00 11/19/16 08:41 (Protonix) 40 mg DAILY PO 11/19/16 09:00 11/19/16 08:22 (Lopressor) 50 mg BID PO 11/19/16 09:00 Family History Denies family history of CAD. Social History Patient quit smoking approximately 30 years ago prior that she smoked about half a pack of cigarettes daily for 2 years. She denies alcohol or illicit drugs. Physical Exam Vital Signs Vital Signs Date Time Temp Pulse Resp B/P Pulse Ox O2 Delivery O2 Flow Rate FiO2 11/19/16 07:22 97.7 57 22 138/64 94 11/19/16 04:45 96.0 52 18 172/80 94 11/19/16 02:58 94 21 11/19/16 02:22 14 11/19/16 02:07 57 14 173/77 98 Room Air 11/19/16 00:08 52 16 197/93 97 Room Air 11/18/16 23:07 Room Air 11/18/16 23:04 96 Room Air 11/18/16 23:00 98.3 62 16 135/81 96 Physical Exam GENERAL: This is a well-nourished, well-developed patient, in no apparent distress. Patient speaks in clear complete sentences. Patient is pleasant. HEENT: Head is atraumatic and normocephalic. Neck is supple without lymphadenopathy and trachea is midline. No JVD or carotid bruits. CARDIOVASCULAR: Regular rate and rhythm without murmurs, gallops, or rubs. RESPIRATORY: Clear to auscultation. Breath sounds equal bilaterally. No wheezes , rales, or rhonchi. Chest wall is nontender. No use of accessory muscles. GASTROINTESTINAL: Abdomen is nontender, nondistended. Abdomen soft. No obvious pulsatile mass or bruit. No CVA tenderness. Strong femoral pulses bilaterally. Normal bowel sounds in all quadrants. MUSCULOSKELETAL: Patient is moving upper and lower extremities freely. No calf tenderness or edema, no Homans sign. Strong pulses in upper and lower extremities. NEUROLOGICAL: Patient is alert and oriented. Cranial nerves 2-12 are grossly intact. No focal deficits and speech is clear. SKIN: No rash and turgor is normal. Laboratory Laboratory Tests Test 11/18/16 11/19/16 11/19/16 11/19/16 23:04 00:05 02:15 03:00 White Blood Count 8.2 Red Blood Count 4.98 Hemoglobin 13.9 Hematocrit 40.4 Mean Corpuscular Volume 81.2 Mean Corpuscular Hemoglobin 27.9 Mean Corpuscular Hemoglobin 34.4 Concent Red Cell Distribution Width 15.8 Platelet Count 285 Mean Platelet Volume 9.2 Neutrophils (%) (Auto) 50.4 Lymphocytes (%) (Auto) 40.3 Monocytes (%) (Auto) 6.4 Eosinophils (%) (Auto) 2.0 Basophils (%) (Auto) 0.9 Neutrophils # (Auto) 4.1 Lymphocytes # (Auto) 3.3 Monocytes # (Auto) 0.5 Eosinophils # (Auto) 0.2 Basophils # (Auto) 0.1 CBC Comment DIFF FINAL Differential Comment B-Type Natriuretic Peptide 39 Prothrombin Time 10.5 Prothromb Time International 1.0 Ratio Activated Partial 28.6 Thromboplast Time Sodium Level 136 Potassium Level 3.7 Chloride Level 102 Carbon Dioxide Level 28.8 Anion Gap 5 Blood Urea Nitrogen 20 Creatinine 1.48 Estimat Glomerular Filtration 35 Rate Random Glucose 109 Calcium Level 9.1 Magnesium Level 2.0 Total Bilirubin 0.3 Aspartate Amino Transf 20 (AST/SGOT) Alanine Aminotransferase 30 (ALT/SGPT) Alkaline Phosphatase 86 Total Creatine Kinase 27 43 Troponin I LESS THAN 0.02 LESS THAN 0.02 Total Protein 7.7 Albumin 3.5 Lipase 282 Urine Color LIGHT-YELLOW Urine Turbidity CLEAR Urine pH 6.5 Urine Specific [place] 1.005 Urine Protein NEG Urine Glucose (UA) NEG Urine Ketones NEG Urine Occult Blood TRACE Urine Nitrite NEG Urine Bilirubin NEG Urine Urobilinogen LESS THAN 2.0 Urine Leukocyte Esterase NEG Urine RBC 2 Urine WBC 1 Urine Bacteria RARE Microscopic Urinalysis Comment CULT NOT INDICATED Test 11/19/16 04:43 Total Creatine Kinase 30 Troponin I LESS THAN 0.02 Result Diagram: 11/18/16 0319 11/19/16 0005 Imaging Last 24 hours Impressions Chest X-Ray 11/18/16 [id number] Signed Impressions: Service Date/Time: Friday, November 18, 2016 23:16 - CONCLUSION: No acute disease. Froilan Marinelli MD Course EKGs are sinus rhythm without significant ST segment depression or elevations. Assessment and Plan Assessment and Plan * Chest pain: Patient has had serial cardiac enzymes and EKGs for ruling out purposes. She has been seen by Dr. Lloyd of cardiology in the chest pain center and will undergo a Lexiscan. She'll be discharged home if her stress test is nonischemic with instructions to follow-up with her primary care physician. * Abdominal pain: Patient had a CT of the abdomen last month and has been following up with her primary care physician to evaluate her abdominal discomfort. Urinalysis report states culture not indicated. I will try to speak with her physician to get further plan. * Hypertension: Patient cannot recall the name of her medication. We will try to get technical sales manager to obtain her medication list. * Hyperlipidemia: Patient states she has elevated cholesterol panel. She states she's never on medication. She should discuss this with her primary care physician. Patient is stable at this time. She is agreeable to this plan. I made multiple attempts to reach the patient's primary care physician. Patient gave different last names of the physician, different spellings of the last name of the physician, and different locations of the physician. Patient was advised to follow-up with her primary care physician. She should call him either this afternoon or tomorrow to make follow-up appointment. Pedro Merritt November 19, 2016 10:24
[2016-11-19] MEDS ORDERED: REGADENOSON INJ 0.4 MG/5 ML SYR ONE (10:35)
--- NOTE | 2016-11-19 12:32 | RADRPT ---
EXAM DATE/TIME: 11/19/2016 10:13 [facility] COMPARISON: No previous studies available for comparison. INDICATIONS : Susbternal chest pain with nausea and dyspnea. Angina. Coronary artery disease. DOSE: 27.1 mCi Tc99m Myoview at stress. 8.5 mCi Tc99m Myoview at rest. 0.4 mg Lexiscan STRESS SYMPTOMS: Dyspnea. EJECTION FRACTION: 60% MEDICAL HISTORY : Hypertension. Gastroesophageal reflux disease. SURGICAL HISTORY : Hysterectomy. Coronary artery stent. ENCOUNTER: Initial ACUITY: 1 day PAIN SCALE: 6/10 LOCATION: Substernal chest TECHNIQUE: The patient underwent pharmacologic stress with infusion of prescribed dose. Continuous ECG tracing was monitored during stress. Gated SPECT imaging was performed after stress and conventional SPECT i maging was performed at rest. The examination was performed on a SPECT/CT scanner, both attenuation and non-corrected datasets were reviewed. FINDINGS: DISTRIBUTION: The maximum perfused segment at stress is in the anteroseptal wall. PERFUSION STUDY: The pattern of perfusion at stress is within normal limits. GATED STUDY: There is intact wall motion and thickening without hypokinetic or dyskinetic segments. CONCLUSION: 1. Unremarkable myocardial perfusion scan. RISK CATEGORY: Low (<1% Annual Mortality Rate) Lawrence Tipton MD on November 19, 2016 at 12:30 Board Certified Radiologist. This report was verified electronically.
--- NOTE | 2016-11-19 13:09 | HHI.DCPOC ---
Discharge Care Plan Diagnosis: (1) Chest pain (2) Hypertension (3) Hyperlipidemia Goals to Promote Your Health * To prevent worsening of your condition and complications * To maintain your health at the optimal level Directions to Meet Your Goals Take your medications as prescribed Follow your dietary instruction Follow activity as directed Keep your appointments as scheduled Take your immunizations and boosters as scheduled If your symptoms worsen call your PCP, if no PCP go to Urgent Care Center or Emergency Room Smoking is Dangerous to Your Health. Avoid second hand smoke Call the 24-hour hour crisis hotline for domestic abuse at Pedro Merritt November 19, 2016 13:09
--- NOTE | 2016-11-19 17:22 | TR ---
Date Performed: 11/19/2016 Time Performed: 11:06:46 DOCTOR: Ayse Lloyd DRUG LIST: CLINICAL HISTORY: REASON FOR TEST: REASON FOR ENDING: OBSERVATION: CONCLUSION: Lexiscan stress test was performed under standard four minute protocol. Radionucl[place] e was injected one minute prior to ending the test. No electrocardiographic abormalities were present to suggest ischemia. Nuclear imaging and interpretation are pending. COMMENTS:
--- NOTE | 2016-11-19 17:23 | EKG ---
Date Performed: 11/19/2016 Time Performed: 04:49:38 PTAGE: 66 years EKG: SINUS BRADYCARDIA SEPTAL MYOCARDIAL INFARCTION MODERATE T-WAVE ABNORMALITY, CONSIDER ANTERI OR ISCHEMIA ABNORMAL ECG Since PREVIOUS TRACING , no significant change noted PREVIOUS TRACIN11/19/2016 02.16 DOCTOR: Ayse Lloyd Interpretating Date/Time 11/19/2016 17:23:22
--- NOTE | 2016-11-19 17:24 | EKG ---
Date Performed: 11/19/2016 Time Performed: 02:16:26 PTAGE: 66 years EKG: SINUS BRADYCARDIA NONSPECIFIC T-WAVE ABNORMALITY BORDERLINE ECG Since PREVIOUS TRACING , no significant change noted PREVIOUS TRACIN11/08/2016 23.29 DOCTOR: Ayse Lloyd Interpretating Date/Time 11/19/2016 17:24:03
--- NOTE | 2016-11-19 17:26 | EKG ---
Date Performed: 11/18/2016 Time Performed: 23:02:20 PTAGE: 66 years EKG: SINUS BRADYCARDIA SEPTAL MYOCARDIAL INFARCTION ABNORMAL ECG Since PREVIOUS TRACING , no significant change noted DOCTOR: Ayse Lloyd Interpretating Date/Time 11/19/2016 17:25:26
== END 2016-11-19 17:08 | disposition home or self-care (01) ==
LOC: NEPE 22:47 → NEDA 11-19 01:31 → NEPFCDU 11-19 04:59
PROVIDERS: ADMIT Internal Medicine Cardiovascular Disease; ATTEND Internal Medicine Cardiovascular Disease
DX: R07.9 Chest pain, unspecified (principal); R10.13 Epigastric pain; R11.0 Nausea; R30.0 Dysuria; R35.0 Frequency of micturition; K31.84 Gastroparesis; I10 Essential (primary) hypertension; R06.02 Shortness of breath; E78.5 Hyperlipidemia, unspecified; E78.00 Pure hypercholesterolemia, unspecified; Z87.891 Personal history of nicotine dependence; I25.10 Atherosclerotic heart disease of native coronary artery without angina pectoris; K21.9 Gastro-esophageal reflux disease without esophagitis; I25.2 Old myocardial infarction; M54.9 Dorsalgia, unspecified; G89.29 Other chronic pain; Z95.5 Presence of coronary angioplasty implant and graft; Z87.11 Personal history of peptic ulcer disease
CPT/HCPCS: 71010; 78452; 80053; 81001; 82550; 83690; 83735; 83880; 84484; 85025; 85610; 85730; 93005; 93017; 96361; 96374; 96375; 99285; A9502; C9113; G0378; J0696; J2270; J2405; J2785; J7030; J7040

== ENCOUNTER 2017-04-20 13:17 | Emergency (ER) | payer MEDICARE, OTHER ==
[~2017-04-20] VITALS: Ht 157.5 cm; Wt 59.0 kg
[2017-04-20 13:23] VITALS: BP 195/91; PULSE 59; RESP 16; TEMP 98.6; O2SAT 97
[2017-04-20] MEDS ORDERED: SODIUM CHLOR 0.9% 1000 ML INJ 1,000 ML IV SCH (13:30)
[2017-04-20] MEDS ORDERED: ONDANSETRON HCL 4 MG/2 ML VIAL IVP ONE (13:30)
[2017-04-20] MEDS ORDERED: MORPHINE SULFATE 4 MG/ML INJ IV PUSH ONE (13:30)
[2017-04-20 13:46] VITALS: O2SAT 100
[2017-04-20 14:01] LABS: AUTOMATED NEUTROPHIL # 4.9 TH/MM3 (1.8-7.7); BASOPHIL % 0.5 % (0.0-2.0); EOSINOPHIL % 0.6 % (0.0-4.0); HEMATOCRIT 39.1 % (35.0-46.0); HEMO FLAGS DIFF FINAL; LYMPHOCYTE # 1.4 TH/MM3 (1.0-4.8); MEAN CELL VOLUME 82.9 FL (80.0-100.0); MEAN CORPUSCULAR HGB CONC 33.8 % (32.0-36.0); MONO % 6.2 % (0.0-8.0); NEUT % 72.7 % (16.0-70.0); PLATELET COUNT 205 TH/MM3 (150-450); RED BLOOD COUNT 4.71 MIL/MM3 (4.00-5.30); RED CELL DISTRIBUTION WIDTH 15.8 % (11.6-17.2); WHITE BLOOD COUNT 6.8 TH/MM3 (4.0-11.0)
--- NOTE | 2017-04-20 14:01 | PD ---
HPI Chief Complaint: Chest Pain Time Seen by Provider: 13:30 Travel History International Travel<30 days: No Contact w/Intl Traveler<30days: No Traveled to known affect area: No History of Present Illness HPI 66-year-old female that presents to the ED for evaluation of chest pain and headache. Patient came here by ambulance for evaluation of this. Apparently per patient she developed bad headache and had a syncopal episode going to the bathroom. Patient states that she lost consciousness for a couple of seconds and was able to make it to the toilet where she threw up multiple times. She states that she called the ambulance. Ambulance showed up and initially she complained of severe headache which is 8 out of 10. She was very hypertensive on examination. Patient also started developing chest pain will on the ambulance and was given 3 nitroglycerin with some improvement of her blood pressure as well as her chest pain. Per patient the chest discomfort is now 9 out of 10. She does have a history of CVA and ACS in the past. She has had stents. She takes no blood thinners. She does have a history of hypertension and takes medications for it. She denies any history of diabetes. No recent surgeries. She does have a history of removal of the colon secondary to possible cancer. This was years ago. Patient denies any other medical issues at this time. She does complain of chest pain but also abdominal pain and she is very sensitive to touch on her abdomen. Symptoms ongoing for less than an hour. PFSH Past Medical History Arthritis: No Asthma: No Autoimmune Disease: No Blood Disorders: No Heart Rhythm Problems: Yes Cancer: Yes Cardiac Catheterization: Yes Cardiovascular Problems: Yes High Cholesterol: Yes Chemotherapy: Yes (1998) Chest Pain: Yes Congestive Heart Failure: No COPD: No Cerebrovascular Accident: Yes Coronary Artery Disease: Yes Diabetes: No Diminished Hearing: No Endocrine: No Gastrointestinal Disorders: Yes (stomach ulcers; gastroparesis) GERD: Yes Glaucoma: No Genitourinary: Yes Headaches: Yes Hepatitis: No Hiatal Hernia: No Hypertension: Yes Immune Disorder: No Kidney Stones: No Musculoskeletal: Yes Neurologic: Yes Psychiatric: No Reproductive: No Respiratory: Yes Immunizations Current: No Migraines: No Myocardial Infarction: Yes Radiation Therapy: Yes (1998) Renal Failure: No Seizures: No Sickle Cell Disease: No Sleep Apnea: No Thyroid Disease: No Ulcer: Yes PNEUMOCCOCAL Vaccine (Year): 2 ?: Not Menopausal: Yes : 5 Para: 5 Past Surgical History Abdominal Surgery: No AICD: No Appendectomy: No Arteriovenous Shunt: No Cardiac Surgery: Yes (ANGIOPLASTY IN [place] IN 2006) Cholecystectomy: No Coronary Artery Bypass Graft: No Coronary Stent: Yes Ear Surgery: No Endocrine Surgery: No Eye Surgery: No Gynecologic Surgery: Yes (CERVIX ECTOMY) Hysterectomy: Yes Insulin Pump: No Joint Replacement: No Neurologic Surgery: No Oral Surgery: No Pacemaker: No Thoracic Surgery: No Other Surgery: Yes Social History Alcohol Use: No Tobacco Use: No Substance Use: No Allergies-Medications (Allergen,Severity, Reaction): Coded Allergies: No Known Allergies (Verified , 11/04/16) Reported Meds & Prescriptions Reported Meds & Active Scripts Active Flagyl (Metronidazole) 500 Mg Tab 500 Mg PO BID 7 Days Cipro (Ciprofloxacin HCl) 500 Mg Tab 500 Mg PO BID 7 Days Carafate (Sucralfate) 1 Gm Tab 1 Gm PO TID On empty stomach Pepcid (Famotidine) 20 Mg Tab 10 Mg PO BID PRN Phenergan (Promethazine HCl) 25 Mg Tab 25 Mg PO Q6H PRN Reported Clonidine (Clonidine HCl) 0.1 Mg Tab 0.1 Mg PO BID Sertraline (Sertraline HCl) 50 Mg Tab 50 Mg PO DAILY Tramadol (Tramadol HCl) 50 Mg Tab 50 Mg PO Q6H PRN Meloxicam 15 Mg Tab 15 Mg PO DAILY Metoprolol Tartrate 50 Mg Tab 50 Mg PO BID Review of Systems Except as stated in HPI: all other systems reviewed are Neg Physical Exam Narrative GENERAL: SKIN: Warm and dry. HEAD: Atraumatic. Normocephalic. EYES: Pupils equal and round. No scleral icterus. No injection or drainage. ENT: No nasal bleeding or discharge. Mucous membranes pink and moist. Tongue is midline. No uvula deviation. NECK: Trachea midline. No JVD. CARDIOVASCULAR: Regular rate and rhythm. No murmurs, S3, S4. RESPIRATORY: No accessory muscle use. Clear to auscultation. Breath sounds equal bilaterally. GASTROINTESTINAL: Abdomen soft, very tender to touch to the abdomen is patient epigastric area, nondistended. Hepatic and splenic margins not palpable. MUSCULOSKELETAL: Extremities without clubbing, cyanosis, or edema. No obvious deformities. Full range of motion of the upper and lower extremities bilaterally. 2+ pulses bilaterally. NEUROLOGICAL: Awake and alert. No obvious cranial nerve deficits. Motor grossly within normal limits. Five out of 5 muscle strength in the arms and legs. Normal speech. PSYCHIATRIC: Appropriate mood and affect; insight and judgment normal. Data Data Last Documented VS Vital Signs Date Time Temp Pulse Resp B/P (MAP) Pulse Ox O2 Delivery O2 Flow Rate FiO2 04/20/17 16:03 52 211/86 (127) 208/87 (127) 04/20/17 13:50 97 Nasal Cannula 2.00 04/20/17 13:23 98.6 16 Orders Orders Complete Blood Count With Diff (04/20/17 13:30) Comprehensive Metabolic Panel (04/20/17 13:30) Ckmb (Isoenzyme) Profile (04/20/17 13:30) Troponin I (04/20/17 13:30) Prothrombin Time / Inr (Pt) (04/20/17 13:30) Act Partial Throm Time (Ptt) (04/20/17 13:30) Lipase (04/20/17 13:30) Urinalysis - C+S If Indicated (04/20/17 13:30) Magnesium (Mg) (04/20/17 13:30) Chest, Single Ap (04/20/17 13:30) Ct Brain W/O Iv Contrast(Rout) (04/20/17 13:30) Ct Abd/Pel W Iv Contrast(Rout) (04/20/17 13:30) Iv Access Insert/Monitor (04/20/17 13:30) Ecg Monitoring (04/20/17 13:30) Oximetry (04/20/17 13:30) Morphine Inj (Morphine Inj) (04/20/17 13:30) Ondansetron Inj (Zofran Inj) (04/20/17 13:30) Sodium Chlor 0.9% 1000 Ml Inj (Ns 1000 M (04/20/17 13:30) Electrocardiogram (04/20/17 ) Iohexol 350 Inj (Omnipaque 350 Inj) (04/20/17 15:34) Clonidine (Catapres) (04/20/17 16:15) Ketorolac Inj (Toradol Inj) (04/20/17 16:15) Labs Laboratory Tests Test 04/20/17 13:40 White Blood Count 6.8 TH/MM3 Red Blood Count 4.71 MIL/MM3 Hemoglobin 13.2 GM/DL Hematocrit 39.1 % Mean Corpuscular Volume 82.9 FL Mean Corpuscular Hemoglobin 28.0 PG Mean Corpuscular Hemoglobin Concent 33.8 % Red Cell Distribution Width 15.8 % Platelet Count 205 TH/MM3 Mean Platelet Volume 8.5 FL Neutrophils (%) (Auto) 72.7 % Lymphocytes (%) (Auto) 20.0 % Monocytes (%) (Auto) 6.2 % Eosinophils (%) (Auto) 0.6 % Basophils (%) (Auto) 0.5 % Neutrophils # (Auto) 4.9 TH/MM3 Lymphocytes # (Auto) 1.4 TH/MM3 Monocytes # (Auto) 0.4 TH/MM3 Eosinophils # (Auto) 0.0 TH/MM3 Basophils # (Auto) 0.0 TH/MM3 CBC Comment DIFF FINAL Differential Comment Prothrombin Time 10.1 SEC Prothromb Time International Ratio 0.9 RATIO Activated Partial Thromboplast Time 24.0 SEC Blood Urea Nitrogen 22 MG/DL Creatinine 1.02 MG/DL Random Glucose 100 MG/DL Total Protein 7.9 GM/DL Albumin 3.5 GM/DL Calcium Level 9.0 MG/DL Magnesium Level 2.1 MG/DL Alkaline Phosphatase 71 U/L Aspartate Amino Transf (AST/SGOT) 15 U/L Alanine Aminotransferase (ALT/SGPT) 20 U/L Total Bilirubin 0.4 MG/DL Sodium Level 139 MEQ/L Potassium Level 3.6 MEQ/L Chloride Level 104 MEQ/L Carbon Dioxide Level 30.3 MEQ/L Anion Gap 5 MEQ/L Estimat Glomerular Filtration Rate 54 ML/MIN Total Creatine Kinase 37 U/L Troponin I LESS THAN 0.02 NG/ML Lipase 282 U/L [facility] Medical Decision Making Medical Screen Exam Complete: Yes Emergency Medical Condition: Yes Medical Record Reviewed: Yes Interpretation(s) CBC & BMP Diagram 04/20/17 13:40 Total Protein 7.9, Albumin 3.5, Calcium Level 9.0, Magnesium Level 2.1, Alkaline Phosphatase 71, Aspartate Amino Transf (AST/SGOT) 15, Alanine Aminotransferase (ALT/SGPT) 20, Total Bilirubin 0.4 CT abdomen pelvis shows colitis CXR negative CT head negative troponin and CKMB negative EKG shows sinus rhythm with no sign of acute ischemia or arrythmia read by me and attending. Differential Diagnosis Hypertensive urgency versus epigastric abdominal pain versus pancreatitis versus acute abdomen versus headache versus cephalgia versus ACS versus urinary tract infection versus gallbladder disease versus hypertensive emergency versus hypertension versus syncope Narrative Course 66-year-old female that presents to the ED for evaluation of chest pain, syncope , epigastric pain and headache. Patient was properly examined and was found to have signs and symptoms of unclear etiology at this time. She does have risk factors for ACS, CVA, hypertensive emergency as well as syncope. Labs and imaging were done. Labs and imaging showed colitis otherwise unremarkable. Patient still has hypertension. Patient was given clonidine which she noted this morning. This brought down her blood pressure nicely. Patient was given pain medication with some relief of her headache and abdominal pain. She does appear to have colitis. Case was discussed in my attending who recommends treatment for antibiotics. Patient's chest appears to be a typical most of her pain is in the epigastric area were is reproducible with touch. She does appear to have colitis. This appears to be likely a typical chest pain. She also had a stress test in November that was negative. My attending Dr. Mae evaluated the patient with me and agrees with plan. Patient was given Cipro and Flagyl. Patient was seen by my attending Dr. Mae who agrees with discharge instructions. See ED worsening symptoms. Follow with PCP. Diagnosis Primary Impression: Colitis Additional Impressions: Atypical chest pain Cephalgia Qualified Codes: G44.209 - Tension-type headache, unspecified, not intractable Patient Instructions: General Instructions Additional Instructions: Take medication as prescribed. Motrin or Tylenol for pain. Take your blood pressure medications at home. See ED worsening symptoms. Follow with PCP. Med/Other Pt SpecificInfo: Prescription(s) given Scripts Metronidazole (Flagyl) 500 Mg Tab 500 MG PO BID for Infection for 7 Days, #14 TAB 0 Refills Prov: Juliana Mae MD 04/20/17 Ciprofloxacin (Cipro) 500 Mg Tab 500 MG PO BID for Infection for 7 Days, #14 TAB 0 Refills Prov: Juliana Mae MD 04/20/17 Disposition: 01 DISCHARGE HOME Condition: Stable Brennen Martin Apr 20, 2017 14:01
[2017-04-20 14:11] LABS: INTERNATIONAL NORMALIZED RATIO 0.9 RATIO; PROTHROMBIN TIME - PATIENT 10.1 SEC (9.8-11.6)
[2017-04-20 14:23] LABS: ALT (GPT) 20 U/L (10-53); ANION GAP 5 MEQ/L (5-15); AST (GOT) 15 U/L (15-37); BICARBONATE 30.3 MEQ/L (21.0-32.0); BLOOD UREA NITROGEN 22 MG/DL (7-18); CHLORIDE 104 MEQ/L (98-107); GLOMERULAR FILTRATION RATE 54 ML/MIN (>89); MAGNESIUM 2.1 MG/DL (1.5-2.5); POTASSIUM 3.6 MEQ/L (3.5-5.1); SODIUM (NA) 139 MEQ/L (136-145)
[2017-04-20 14:27] LABS: ALKALINE PHOSPHATASE 71 U/L (45-117); TOTAL BILIRUBIN ADULT 0.4 MG/DL (0.2-1.0)
[2017-04-20 14:34] LABS: CREATINE KINASE 37 U/L (26-192)
--- NOTE | 2017-04-20 14:52 | RADRPT ---
EXAM DATE/TIME: 04/20/2017 13:53 [facility] COMPARISON: CHEST SINGLE AP, November 18, 2016, 23:16. INDICATIONS : Chest pains with pressure. MEDICAL HISTORY : Myocardial infarction. SURGICAL HISTORY : None. ENCOUNTER: Initial ACUITY: 2 days PAIN SCORE: 0/10 LOCATION: Bilateral chest FINDINGS: A single view of the chest demonstrates the lungs to be symmetrically aerated without evidence of mas s, infiltrate or effusion. The cardiomediastinal contours are unremarkable. Osseous structures are intact. CONCLUSION: 1. No acute cardiopulmonary disease. Lawrence Tipton MD on April 20, 2017 at 14:50 Board Certified Radiologist. This report was verified electronically.
[2017-04-20] MEDS ORDERED: IOHEXOL 350 MG/ML 10 ML VIAL (for RAD DIAG) IVCONTRAST ONE (15:34)
--- NOTE | 2017-04-20 15:42 | RADRPT ---
EXAM DATE/TIME: 04/20/2017 14:51 [facility] COMPARISON: CT BRAIN W/O CONTRAST, November 08, 2016, 23:23. INDICATIONS : Cehalgia today. RADIATION DOSE: 56.35 CTDIvol (mGy) MEDICAL HISTORY : Stroke. Hypertension. SURGICAL HISTORY : Hysterectomy. ENCOUNTER: Initial ACUITY: 1 day PAIN SCALE: 8/10 LOCATION: Bilateral head TECHNIQUE: Multiple contiguous axial images were obtained of the head. Using automated exposure control and adj ustment of the mA and/or kV according to patient size, radiation dose was kept as low as reasonably a chievable to obtain optimal diagnostic quality images. DICOM format image data is available electro nically for review and comparison. FINDINGS: CEREBRUM: The ventricles are normal for age. No evidence of midline shift, mass lesion, hemorrhage or acute in farction. No extra-axial fluid collections are seen. POSTERIOR FOSSA: The cerebellum and brainstem are intact. The 4th ventricle is midline. The cerebellopontine angle i s unremarkable. EXTRACRANIAL: The visualized portion of the orbits is intact. SKULL: The calvaria is intact. No evidence of skull fracture. CONCLUSION: 1. No evidence of acute intracranial pathology. No masses are identified. Lawrence Tipton MD on April 20, 2017 at 15:39 Board Certified Radiologist. This report was verified electronically.
--- NOTE | 2017-04-20 15:51 | RADRPT ---
EXAM DATE/TIME: 04/20/2017 15:08 [facility] COMPARISON: CT ABDOMEN & PELVIS W CONTRAST, October 19, 2016, 0:23. INDICATIONS : Right lower abdomen pain today. IV CONTRAST: 70 cc Omnipaque 350 (iohexol) IV ORAL CONTRAST: No oral contrast ingested. RADIATION DOSE: 9.96 CTDIvol (mGy) MEDICAL HISTORY : Stroke. Hypertension. SURGICAL HISTORY : Hysterectomy. ENCOUNTER: Initial ACUITY: 1 day PAIN SCALE: 7/10 LOCATION: Right lower quadrant TECHNIQUE: Volumetric scanning of the abdomen and pelvis was performed. Using automated exposure control and ad justment of the mA and/or kV according to patient size, radiation dose was kept as low as reasonably achievable to obtain optimal diagnostic quality images. DICOM format image data is available electro nically for review and comparison. FINDINGS: There is subsegmental atelectasis in the both bases. The liver and spleen are free of focal defects. The gallbladder and pancreas demonstrate no abnormality. The adrenal glands are normal. The kidneys demonstrate no evidence of solid renal mass or hydronephrosis. No free fluid or abdominal masses are identified. No para-aortic adenopathy is seen. Examination of the right lower quadrant demonstrates n o abnormality. The appendix is identified and appears normal. Examination of the pelvis demonstrates no evidence of free fluid or pelvic mass. No abnormally enlarg ed inguinal or retroperitoneal lymph nodes are present. The bladder is unremarkable. There is mild th ickening of the wall of the distal sigmoid colon and rectum which may reflect colitis. There is no ev idence of abscess. Small amount of free fluid is present in the pelvis. CONCLUSION: 1. Possible colitis involving the distal sigmoid colon and rectum without abscess Lawrence Tipton MD on April 20, 2017 at 15:46 Board Certified Radiologist. This report was verified electronically.
[2017-04-20 16:03] VITALS: BP_SYST 208; BP_SYST 211; BP_DIAS 86; BP_DIAS 87; PULSE 52
[2017-04-20] MEDS ORDERED: CIPR-9 PO (16:08)
[2017-04-20] MEDS ORDERED: METR-1 PO (16:08)
[2017-04-20] MEDS ORDERED: KETOROLAC TROMETHAMINE 30 MG/ML (IVP) VIAL IV PUSH ONE (16:15)
[2017-04-20] MEDS ORDERED: cloNIDine HCL 0.1 MG TAB PO ONE (16:15)
[2017-04-20 17:02] VITALS: BP 211/91; PULSE 52; RESP 16; O2SAT 100
[2017-04-20 17:30] VITALS: BP 170/77; PULSE 82; RESP 16; O2SAT 100
--- NOTE | 2017-04-20 18:48 | PD ---
Data Data Last Documented VS Vital Signs Date Time Temp Pulse Resp B/P (MAP) Pulse Ox O2 Delivery O2 Flow Rate FiO2 04/20/17 17:40 04/20/17 17:30 82 16 100 Room Air 04/20/17 13:50 2.00 04/20/17 13:23 98.6 Orders Orders Complete Blood Count With Diff (04/20/17 13:30) Comprehensive Metabolic Panel (04/20/17 13:30) Ckmb (Isoenzyme) Profile (04/20/17 13:30) Troponin I (04/20/17 13:30) Prothrombin Time / Inr (Pt) (04/20/17 13:30) Act Partial Throm Time (Ptt) (04/20/17 13:30) Lipase (04/20/17 13:30) Urinalysis - C+S If Indicated (04/20/17 13:30) Magnesium (Mg) (04/20/17 13:30) Chest, Single Ap (04/20/17 13:30) Ct Brain W/O Iv Contrast(Rout) (04/20/17 13:30) Ct Abd/Pel W Iv Contrast(Rout) (04/20/17 13:30) Iv Access Insert/Monitor (04/20/17 13:30) Ecg Monitoring (04/20/17 13:30) Oximetry (04/20/17 13:30) Morphine Inj (Morphine Inj) (04/20/17 13:30) Ondansetron Inj (Zofran Inj) (04/20/17 13:30) Sodium Chlor 0.9% 1000 Ml Inj (Ns 1000 M (04/20/17 13:30) Electrocardiogram (04/20/17 ) Iohexol 350 Inj (Omnipaque 350 Inj) (04/20/17 15:34) Clonidine (Catapres) (04/20/17 16:15) Ketorolac Inj (Toradol Inj) (04/20/17 16:15) Ed Discharge Order (04/20/17 17:43) Labs Laboratory Tests Test 04/20/17 13:40 White Blood Count 6.8 TH/MM3 Red Blood Count 4.71 MIL/MM3 Hemoglobin 13.2 GM/DL Hematocrit 39.1 % Mean Corpuscular Volume 82.9 FL Mean Corpuscular Hemoglobin 28.0 PG Mean Corpuscular Hemoglobin Concent 33.8 % Red Cell Distribution Width 15.8 % Platelet Count 205 TH/MM3 Mean Platelet Volume 8.5 FL Neutrophils (%) (Auto) 72.7 % Lymphocytes (%) (Auto) 20.0 % Monocytes (%) (Auto) 6.2 % Eosinophils (%) (Auto) 0.6 % Basophils (%) (Auto) 0.5 % Neutrophils # (Auto) 4.9 TH/MM3 Lymphocytes # (Auto) 1.4 TH/MM3 Monocytes # (Auto) 0.4 TH/MM3 Eosinophils # (Auto) 0.0 TH/MM3 Basophils # (Auto) 0.0 TH/MM3 CBC Comment DIFF FINAL Differential Comment Prothrombin Time 10.1 SEC Prothromb Time International Ratio 0.9 RATIO Activated Partial Thromboplast Time 24.0 SEC Blood Urea Nitrogen 22 MG/DL Creatinine 1.02 MG/DL Random Glucose 100 MG/DL Total Protein 7.9 GM/DL Albumin 3.5 GM/DL Calcium Level 9.0 MG/DL Magnesium Level 2.1 MG/DL Alkaline Phosphatase 71 U/L Aspartate Amino Transf (AST/SGOT) 15 U/L Alanine Aminotransferase (ALT/SGPT) 20 U/L Total Bilirubin 0.4 MG/DL Sodium Level 139 MEQ/L Potassium Level 3.6 MEQ/L Chloride Level 104 MEQ/L Carbon Dioxide Level 30.3 MEQ/L Anion Gap 5 MEQ/L Estimat Glomerular Filtration Rate 54 ML/MIN Total Creatine Kinase 37 U/L Troponin I LESS THAN 0.02 NG/ML Lipase 282 U/L MDM Supervised Visit with DELGADO: Yes Narrative Course The history, exam, and medical decision-making in the associated midlevel provider note were completed with my assistance. I reviewed and agree with the findings presented. I attest that I had a [id number] encounter with the patient on the same day, and personally performed and documented my assessment and findings in the medical record. *My assessment and Findings: This is a 66-year-old female who presents to the emergency department with multiple complaints including headache, chest pain and abdominal pain. She has a normal neurologic exam. She is quite hypertensive. She was given clonidine, Toradol for her headache, and morphine. Her pain is been constant for more than 12 hours. I don't think is cardiac in nature and she just had a recent negative stress test within the past few months. Abdominal CT demonstrates some possible colitis. Patient was tender on exam. She'll be discharged with antibiotics. Diagnosis Primary Impression: Colitis Additional Impressions: Cephalgia Qualified Codes: G44.209 - Tension-type headache, unspecified, not intractable Atypical chest pain Patient Instructions: General Instructions, Chest Pain (ED), Acute Headache (ED ) Departure Forms: Tests/Procedures Additional Instruction: Take medication as prescribed. Motrin or Tylenol for pain. Take your blood pressure medications at home. See ED worsening symptoms. Follow with PCP. Scripts Metronidazole (Flagyl) 500 Mg Tab 500 MG PO BID for Infection for 7 Days, #14 TAB 0 Refills Prov: Juliana Mae MD 04/20/17 Ciprofloxacin (Cipro) 500 Mg Tab 500 MG PO BID for Infection for 7 Days, #14 TAB 0 Refills Prov: Juliana Mae MD 04/20/17 Disposition: 01 DISCHARGE HOME Condition: Stable Juliana Mae MD Apr 20, 2017 18:48
--- NOTE | 2017-04-21 23:01 | EKG ---
Date Performed: 04/20/2017 Time Performed: 13:37:10 PTAGE: 66 years EKG: SINUS BRADYCARDIA NONSPECIFIC ST-T ABNORMALITY BORDERLINE ECG PREVIOUS TRACING : 11/19/2016 04.49 Compared to prior tracing no significant change DOCTOR: Roopa Stover Interpretating Date/Time 04/21/2017 22:59:32
== END 2017-04-20 18:03 | disposition home or self-care (01) ==
LOC: NEPC 13:17
DX: K52.9 Noninfective gastroenteritis and colitis, unspecified (principal); G44.209 Tension-type headache, unspecified, not intractable; I10 Essential (primary) hypertension; I25.10 Atherosclerotic heart disease of native coronary artery without angina pectoris; Z79.899 Other long term (current) drug therapy
CPT/HCPCS: 70450; 71010; 74177; 80053; 82550; 83690; 83735; 84484; 85025; 85610; 85730; 93005; 96361; 96374; 96375; 99285; J1885; J2270; J2405; J7030; Q9967